=== PATIENT | female | born 1975 | race Caucasian/White ===

== ENCOUNTER 2017-01-10 17:29 | Inpatient (IN) | payer SELFPAY ==
[~2017-01-10] VITALS: Ht 160 cm; Wt 113.4 kg
[~2017-01-10 17:29] MED LIST: LOSA25TA4 PO; VENL37.5 PO
[2017-01-10] MEDS ORDERED: IV 1/2 NORMAL SALINE 1,000 ML IV SCH (19:16)
[2017-01-10] MEDS ORDERED: MORPHINE SULFATE 2 MG/ML DISP.SYRIN. IV PRN (19:30)
[2017-01-10] MEDS ORDERED: LACTULOSE 20 GM/30 ML SOLUTION. PO PRN (19:30)
[2017-01-10] MEDS ORDERED: ZOLPIDEM 5 MG TABLET. PO PRN (19:30)
[2017-01-10] MEDS ORDERED: PROCHLORPERAZINE 10 MG/2 ML VIAL. IV PRN (19:30)
[2017-01-10] MEDS ORDERED: CALCIUM CARBONATE 500 MG TAB.CHEW PO PRN (19:30)
[2017-01-10] MEDS ORDERED: KETOROLAC TROMETHAMINE 30 MG/ML SYRINGE. IV PRN (19:30)
[2017-01-10] MEDS ORDERED: PROCHLORPERAZINE 25 MG SUPP.RECT. PR PRN (19:30)
[2017-01-10] MEDS ORDERED: MAGNESIUM HYDROXIDE 2,400 MG/30 ML ORAL.SUSP. PO PRN (19:30)
[2017-01-10] MEDS ORDERED: IBUPROFEN 400 MG TABLET. PO PRN (19:30)
[2017-01-10] MEDS ORDERED: OXYCODONE IR 5 MG TABLET. PO PRN (19:30)
[2017-01-10] MEDS ORDERED: MAG HYDROX/ALUMINUM HYD/SIMETH 30 ML ORAL.SUSP PO PRN (19:30)
[2017-01-10] MEDS ORDERED: ONDANSETRON PF 4 MG/2 ML VIAL. IV PRN (19:30)
[2017-01-10] MEDS ORDERED: BISACODYL 10 MG SUPP.RECT. PR PRN (19:30)
[2017-01-10] MEDS ORDERED: ACETAMINOPHEN 325 MG TABLET. PO PRN (19:30)
[2017-01-10 19:39] VITALS: BP 126/68
--- NOTE | 2017-01-10 20:07 | PDOC1 ---
History and Physical Date of Admission Date of Admission DATE: 01/10/17 TIME: 20:01 Identification/Chief Complaint Chief Complaint fall mechanical Source Source: Caregiver, Chart review, Patient History of Present Illness History of Present Illness 41 yo female, slipped on wet concrete today, no head trauma, mechanical, no presyncopal sxs. Went to [facility], Imaging shows R fem neck fx. Ortho aware, transferred here for planned sx in AM, Pt did have ankle sx from trauma in the past. LAbs ok except for K of 2.9 at [facility] no relief, claims dilaudid helped NO known heart and lung probs: PAst medical: hypothyroidism, HTN, Anxiety Past sx: hysterectomy, cholecystectomy,left ozzy sx Smoker Allergy to duoneb Fam hx, reviewed, non contributory Past Medical History Cardiovascular: HTN Psych: Anxiety Endocrine: Hypothyroidism Past Surgical History Past Surgical History: Cholecystectomy, Hysterectomy Family History Family History: No Significant Social History Smoke: 1 pack per day ALCOHOL: none Drugs: None Current Problem List Problem List Problems Medical Problems: (1) Hip fracture Status: Acute Problems: Current Medications Current Medications Current Medications Losartan Potassium (Cozaar) 25 mg DAILY PO ; Start 01/11/17 at 09:00 Venlafaxine HCl 37.5 mg 37.5 mg DAILY PO ; Start 01/11/17 at 09:00 Sodium Chloride (Iv Sodium Chloride 0.45%) 1,000 ml @ 100 mls/hr Q10H IV ; Start 01/10/17 at 19:16; Stop 01/10/17 at 19:23; Status DC Ondansetron HCl (Zofran) 4 mg PRN Q6HRS PRN IV NAUSEA/VOMITING; Start 01/10/17 at 19:30 Prochlorperazine Edisylate (Compazine) 10 mg PRN Q6HRS PRN IV NAUSEA/VOMITING; Start 01/10/17 at 19:30 Prochlorperazine (Compazine) 25 mg PRN Q12HR PRN [place] NAUSEA/VOMITING; Start at 19:30 Al Hydroxide/Mg Hydroxide (Mylanta Plus Xs) 30 ml PRN Q3HRS PRN PO HEARTBURN / GAS; Start 01/10/17 at 19:30 Calcium Carbonate/ Glycine (Tums) 500 mg PRN Q3HRS PRN PO UPSET STOMACH; Start 01/10/17 at 19:30 Zolpidem Tartrate (Ambien) 5 mg PRN QHS PRN PO INSOMNIA, MAY REPEAT IN 1HR; Start 01/10/17 at 19:30 Oxycodone HCl (Roxicodone) 5 mg PRN Q3HRS PRN PO BREAKTHROUGH PAIN; Start 01/10 at 19:30 Morphine Sulfate 2 mg PRN Q2HR PRN IV PAIN; Start 01/10/17 at 19:30; Stop 01/10 at 19:45; Status DC Oxycodone/ Acetaminophen (Percocet 5/325) 1 tab PRN Q4HRS PRN PO MILD PAIN, 1ST CHOICE; Start 01/10/17 at 19:30 Ketorolac Tromethamine (Toradol) 30 mg PRN Q6HRS PRN IV PAIN; Start 01/10/17 at 19:30; Stop 01/15/17 at 19:29 Acetaminophen (Tylenol) 650 mg PRN Q6HRS PRN PO MILD PAIN / TEMP; Start at 19:30 Ibuprofen (Motrin) 400 mg PRN Q6HRS PRN PO MILD PAIN; Start 01/10/17 at 19:30 Senna/Docusate Sodium (Senna Plus) 1 tab BID PO ; Start 01/10/17 at 21:00 Docusate Sodium (Colace) 100 mg BID PO ; Start 01/10/17 at 21:00 Magnesium Hydroxide (Milk Of Magnesia) 2,400 mg PRN Q12HR PRN PO CONSTIPATION; Start 01/10/17 at 19:30 Lactulose 20 gm PRN Q12HR PRN PO CONSTIPATION; Start 01/10/17 at 19:30 Bisacodyl 10 mg 10 mg PRN DAILY PRN [place] CONSTIPATION; Start 01/10/17 at 19:30 Potassium Chloride 100 ml @ 100 mls/hr Q1H IV ; Start 01/10/17 at 20:00; Stop 01/11/17 at 01:59 Potassium Chloride/Sodium Chloride (Iv Sodium Chloride 0.45%) 1,015 ml @ 100 mls/hr Q10H9M IV ; Start 01/10/17 at 20:00 Hydromorphone HCl (Dilaudid) 2 mg PRN Q4HRS PRN IV PAIN; Start 01/10/17 at 19: 45 Active Scripts Active Reported Losartan Potassium 25 Mg Tablet 25 Mg PO DAILY Effexor Xr (Venlafaxine Hcl) 37.5 Mg Cap.er.24h 1 Cap PO DAILY Allergies Allergies: Coded Allergies: albuterol (Verified Allergy, Intermediate, 11/12/16) ipratropium (Verified Allergy, Intermediate, 11/12/16) ROS General: No: Appetite, Chills, Fatigue, Malaise, Night Sweats, Other PSYCHOLOGICAL ROS: No: Anxiety, Behavioral Disorder, Concentration difficultie , Decreased libido, Depression, Disorientation, Hallucinations, Hostility, Irritablity, Memory difficulties, Mood Swings, Obsessive thoughts, Other, Physical abuse, Sexual abuse, Sleep disturbances, Suicidal ideation Eyes: No Blurry vision, No Decreased vision, No Double vision, No Dry eyes, No Excessive tearing, No Eye Pain, No Itchy Eyes, No Loss of vision, No Other, No Photophobia, No Scotomata, No Uses contacts, No Uses glasses HEENT: No: Epistaxis, Heacaches, Hearing change, Nasal congestion, Nasal discharge, Oral lesions, Other, Sinus pain, Sneezing, Snoring, Sore Throat, Tinnitus, Vertigo, Visual Changes, Vocal changes ALLERGY AND IMMUNOLOGY: No: Hives, Insect Bite Sensitivity, Itchy/Watery Eyes, Nasal Congestion, Other, Post Nasal Drip, Seasonal Allergies Hematological and Lymphatic: No: Bleeding Problems, Blood Clots, Blood Transfusions, Brusing, Night Sweats, Other, Pallor, Swollen Lymph Nodes ENDOCRINE: No: Breast Changes, Galactorrhea, Hair Pattern Changes, Hot Flashes , Malaise/lethargy, Mood Swings, Other, Palpitations, Polydipsia/polyuria, Skin Changes, Temperature Intolerance, Unexpected Weight Changes Breast: No New/Changing Breast Lumps, No Nipple changes, No Nipple discharge, No Other Respiratory: No: Cough, Hemoptysis, Orthopnea, Other, Pleuritic Pain, SOB with excertion, Shortness of breath, Sputum Changes, Stridor, Tachypnea, Wheezing Cardiovascular: No Chest Pain, No Edema, No Lt Headedness, No Orthopnea, No Other, No Palpitations, No Paroxysmal Noc. Dyspnea Genitourinary: No , No , No , No , No , No , No , No Discharge, No Dysuria, No Flank Pain, No Frequency, No Hematuria, No Incontinence, No Other, No Pain, No Retention, No Urgency Musculoskeletal: Yes Other (pain R hip now) Neurological: No Behavorial Changes, No Bowel/Bladder ControlChng, No Confusion , No Dizziness, No Gait Disturbance, No Headaches, No Impaired Coord/balance, No Memory Loss, No Numbness/Tingling, No Other, No Seizures, No Speech Problems , No Tremors, No Visual Changes, No Weakness Skin: No Acne, No Dry Skin, No Eczema, No Hair Changes, No Lumps, No Mole Changes, No Mottling, No Nail Changes, No Other, No Pruritus, No Rash, No Skin Lesion Changes Physical Exam General: Alert, Oriented X3, Cooperative, No acute distress HEENT: Atraumatic Lungs: Clear to auscultation, Normal air movement Heart: S1S2, RRR, no thrills, no rubs, no gallops, no murmurs Cardiovascular: S1, S2 Breasts: Normal, Rt breast nml w/o mass, Lt breast nml w/o mass, Nipples normal Abdomen: Normal bowel sounds, Soft, No tenderness, No hepatosplenomegaly, No masses Rectal Exam: not examined PELVIC: Nml ext genitalia Extremities: Other (external rotation R hip) Skin: No rashes, No breakdown, No significant lesion Neuro: Normal gait, Normal speech, Strength at 5/5 X4 ext, Normal tone, Sensation intact, Cranial nerves 3-12 NL, Reflexes 2+ Psych/Mental Status: Mental status NL, Mood NL Vitals Vitals Vital Signs Date Time Temp Pulse Resp B/P Pulse Ox O2 Delivery O2 Flow Rate FiO2 01/10/17 19:39 98.6 73 18 126/68 92 Room Air 98.6 VTE Prophylaxis Ordered VTE Prophylaxis Devices: Yes VTE Pharmacological Prophylaxi: Yes Assessment/Plan Assessment/Plan 1. R fem neck fx, closed, traumatic after a mechanical fall 2. Critical Hypokalemia 3. Hypothyroidism, HTN, ANxiety NOS - chronic stable PLAn: Ok for liquid diet tonight then NPO post MN K containing iVF plus Kcl 20 IV x 3 Dialudid prn Resume home meds PT/OT post op LAbs amairani AM - rpt K amairani Jackson Rn and pt and ASHWINI HAQUE MD Jan 10, 2017 20:07
[2017-01-10] MEDS ORDERED: NICOTINE 21MG PATCH. TD PRN (20:15)
[2017-01-10] MEDS: OXYCODONE/APAP 5/325 TABLET. PO PRN (20:37)
[2017-01-10] MEDS: SENNOSIDES/DOCUSATE 8.6/50MG TABLET. PO SCH (20:37)
[2017-01-10] MEDS: DOCUSATE SODIUM 100 MG CAPSULE PO SCH (20:37)
[2017-01-10] MEDS: POTASSIUM CHLORIDE 30 MEQ in IV 1/2 NORMAL SALINE 1,000 ML IV SCH (20:38)
[2017-01-10] MEDS: POTASSIUM CHLORIDE 10MEQ 100 ML IV SCH ×2 (20:39→22:47)
[2017-01-10] MEDS: HYDROMORPHONE 2 MG/ML VIAL. IV PRN (21:07)
[2017-01-10 23:09] VITALS: BP 116/57
[2017-01-11] VITALS (10 sets, daily range): BP systolic 115–151; BP diastolic 58–92
[2017-01-11] MEDS: POTASSIUM CHLORIDE 10MEQ 100 ML IV SCH ×4 (00:22→05:19)
[2017-01-11] MEDS: OXYCODONE/APAP 5/325 TABLET. PO PRN (00:50)
[2017-01-11] MEDS: HYDROMORPHONE 2 MG/ML VIAL. IV PRN ×7 (02:00→22:06)
[2017-01-11] MEDS ORDERED: OMEP40CA5 PO (08:13)
[2017-01-11] MEDS ORDERED: CARB200T PO ×2 (08:13)
[2017-01-11] MEDS ORDERED: ESTR2TAB PO (08:13)
[2017-01-11] MEDS ORDERED: TRAZ150T55 PO (08:13)
[2017-01-11] MEDS ORDERED: ASPI81TA2 PO (08:13)
[2017-01-11] MEDS ORDERED: POTA10TA10 PO (08:13)
[2017-01-11] MEDS ORDERED: LOSA1TAB18 PO (08:13)
[2017-01-11] MEDS ORDERED: ATOR10TA PO (08:13)
[2017-01-11] MEDS ORDERED: IV RINGERS,LACTATED 1000ML 1,000 ML IV SCH (08:14)
[2017-01-11] MEDS ORDERED: FENTANYL PF 100 MCG/2 ML VIAL. IV PRN ×2 (08:15→14:00)
[2017-01-11] MEDS ORDERED: LIDOCAINE 1% 1 ML SYRINGE. ID PRN (08:15)
[2017-01-11] MEDS ORDERED: ONDANSETRON PF 4 MG/2 ML VIAL. IV PRN ×2 (08:15→14:00)
[2017-01-11] MEDS ORDERED: PROCHLORPERAZINE 10 MG/2 ML VIAL. IV PRN (08:15)
[2017-01-11 08:23] LABS: BASO # 0.1 x10^3/uL (0.0-0.2); BASO % 1 % (0-3); EOS % 2 % (0-3); HEMATOCRIT 38.2 % (36.0-47.0); HEMOGLOBIN 12.3 g/dL (12.0-15.5); LYMPH # 2.5 x10^3/uL (1.0-4.8); LYMPH % 30 % (24-48); MEAN CORPUSCULAR HEMOGLOBIN 30 pg (25-35); MEAN CORPUSCULAR HGB CONC 32 g/dL (31-37); MEAN CORPUSCULAR VOLUME 94 fL (79-100); MONO % 9 % (0-9); NEUT % 59 % (31-73); PLATELET COUNT 232 x10^3/uL (140-400); RED BLOOD COUNT 4.08 x10^6/uL (3.50-5.40); RED CELL DISTRIBUTION WIDTH 14.9 % (11.5-14.5); WHITE BLOOD COUNT 8.5 x10^3/uL (4.0-11.0)
[2017-01-11 08:34] LABS: INR 1.1 (0.8-1.1); PROTHROMBIN TIME PATIENT 13.2 SEC (11.7-14.0)
[2017-01-11] MEDS: DOCUSATE SODIUM 100 MG CAPSULE PO SCH ×2 (08:34→20:56)
[2017-01-11] MEDS: SENNOSIDES/DOCUSATE 8.6/50MG TABLET. PO SCH ×2 (08:34→20:56)
[2017-01-11] MEDS: VENLAFAXINE XR 37.5 MG CAP.ER.24H. PO SCH (08:34)
[2017-01-11 08:41] LABS: ALBUMIN/GLOBULIN RATIO 0.7 (1.0-1.7); CALCIUM 9.4 mg/dL (8.5-10.1); CREATININE 0.9 mg/dL (0.6-1.0); GFR 68.3; PHOSPHORUS 3.1 mg/dL (2.6-4.7); TOTAL BILIRUBIN 0.5 mg/dL (0.2-1.0); TOTAL PROTEIN 7.3 g/dL (6.4-8.2)
[2017-01-11] MEDS ORDERED: PNEUMOCOCCAL VAX SCREEN BY RX. MC ONE (08:45)
[2017-01-11] MEDS ORDERED: BUPIVACAINE-EPI 0.25%-1:200000 MPF 30 ML VIAL. ONE (09:35)
[2017-01-11] MEDS ORDERED: PROPOFOL 20 ML IV ONE (10:39)
[2017-01-11] MEDS ORDERED: LIDOCAINE 2% 100 MG/5 ML DISP.SYRIN. ONE (10:39)
[2017-01-11] MEDS ORDERED: ONDANSETRON PF 4 MG/2 ML VIAL. ONE (10:40)
[2017-01-11] MEDS ORDERED: ROCURONIUM 50 MG/5 ML VIAL. ONE (10:40)
[2017-01-11] MEDS ORDERED: FAMOTIDINE 20 MG/2 ML VIAL ONE (10:40)
[2017-01-11] MEDS ORDERED: FENTANYL PF 100 MCG/2 ML VIAL. ONE ×2 (10:40→13:25)
[2017-01-11] MEDS ORDERED: PHENYLEPHRINE in 0.9% NACL PF 1 MG/10 ML DISP.SYRIN. IV ONE (10:40)
[2017-01-11] MEDS ORDERED: CEFAZOLIN PREMIX 2 GM/50 ML BAG. IV ONE (11:21)
[2017-01-11] MEDS ORDERED: CEFAZOLIN 2GM PREMIX 50 ML IV ONE (11:21)
--- NOTE | 2017-01-11 11:50 | PDOC2 ---
CONSULT Date of Consult Date of Consult DATE: 01/11/17 TIME: 11:34 Reason for Consult Reason for Consult: Right hip fracture Identification/Chief Complaint Chief Complaint Right hip pain after a fall Source Source: Chart review, Patient History of Present Illness Reason for Visit: This 41-year-old woman slipped and fell on wet concrete yesterday, landed on her right hip and felt a pop. She was seen at [facility] emergency room, where x -rays showed a low femoral neck fracture which is displaced. She had hip pain and was unable to walk. Her only complaint is of hip pain. During the review of systems she indicated that she has had hip pain since about October 30, where it felt like the hip needed to pop. She had x-rays at [facility] on 11/07/16 that were negative for a fracture. She had a corticosteroid injection into the right hip joint on 11/12/16 which I noted when I reviewed her old x-rays. On detailed questioning she said the cortisone injection did not help her pain. Also on detailed questioning and review of systems, she notes some other fracture difficulty healing, including a fourth metatarsal fracture that occurred while walking in July 2015 and which has not healed properly. She also had an ankle fracture many years ago after slipping on the ice. She had a hysterectomy at 22 years old and has been on hormone replacement. She was on vitamin D remotely but is no longer on vitamin D. Past Medical History Cardiovascular: HTN Pulmonary: Asthma Psych: Anxiety, Depression Endocrine: Hypothyroidism Past Surgical History Past Surgical History Left ankle ORIF 21 years ago 8 screws and a plate. "Shattered the joint". Hardware removed in approximately 2004. 2 Ruptured uterus and bowel at 22 years old. Had hysterectomy then. On hormone replacement. Cholecystectomy. Past Surgical History: Cholecystectomy, Hysterectomy Family History Family History: Cancer, Coronary Artery Disease, Diabetes, Hypertension Social History Social History She was in jail for 5 years and was recently released. She is currently living in a custodial house. 1 pack per day ALCOHOL: none Drugs: None, Other (remote illicit drug use) Current Problem List Problem List Problems Medical Problems: (1) Hip fracture Status: Acute Current Medications Current Medications Current Medications Losartan Potassium (Cozaar) 25 mg DAILY PO ; Start 01/11/17 at 09:00 Venlafaxine HCl 37.5 mg 37.5 mg DAILY PO Last administered on 3/25/17at 08:34; Start 01/11/17 at 09:00 Sodium Chloride (Iv Sodium Chloride 0.45%) 1,000 ml @ 100 mls/hr Q10H IV ; Start 01/10/17 at 19:16; Stop 01/10/17 at 19:23; Status DC Ondansetron HCl (Zofran) 4 mg PRN Q6HRS PRN IV NAUSEA/VOMITING; Start 01/10/17 at 19:30 Prochlorperazine Edisylate (Compazine) 10 mg PRN Q6HRS PRN IV NAUSEA/VOMITING; Start 01/10/17 at 19:30 Prochlorperazine (Compazine) 25 mg PRN Q12HR PRN [place] NAUSEA/VOMITING; Start at 19:30 Al Hydroxide/Mg Hydroxide (Mylanta Plus Xs) 30 ml PRN Q3HRS PRN PO HEARTBURN / GAS; Start 01/10/17 at 19:30 Calcium Carbonate/ Glycine (Tums) 500 mg PRN Q3HRS PRN PO UPSET STOMACH; Start 01/10/17 at 19:30 Zolpidem Tartrate (Ambien) 5 mg PRN QHS PRN PO INSOMNIA, MAY REPEAT IN 1HR Last administered on 01/10/17 21:06; Start 01/10/17 at 19:30 Oxycodone HCl (Roxicodone) 5 mg PRN Q3HRS PRN PO BREAKTHROUGH PAIN; Start 01/10 at 19:30 Morphine Sulfate 2 mg PRN Q2HR PRN IV PAIN; Start 01/10/17 at 19:30; Stop 01/10 at 19:45; Status DC Oxycodone/ Acetaminophen (Percocet 5/325) 1 tab PRN Q4HRS PRN PO MILD PAIN, 1ST CHOICE Last administered on 01/11/17 00:50; Start 01/10/17 at 19:30 Ketorolac Tromethamine (Toradol) 30 mg PRN Q6HRS PRN IV PAIN Last administered on 01/10/17 20:37; Start 01/10/17 at 19:30; Stop 01/15/17 at 19:29 Acetaminophen (Tylenol) 650 mg PRN Q6HRS PRN PO MILD PAIN / TEMP; Start at 19:30 Ibuprofen (Motrin) 400 mg PRN Q6HRS PRN PO MILD PAIN; Start 01/10/17 at 19:30 Senna/Docusate Sodium (Senna Plus) 1 tab BID PO Last administered on 01/11/17 08:34; Start 01/10/17 at 21:00 Docusate Sodium (Colace) 100 mg BID PO Last administered on 01/11/17 08:34; Start 01/10/17 at 21:00 Magnesium Hydroxide (Milk Of Magnesia) 2,400 mg PRN Q12HR PRN PO CONSTIPATION; Start 01/10/17 at 19:30 Lactulose 20 gm PRN Q12HR PRN PO CONSTIPATION; Start 01/10/17 at 19:30 Bisacodyl 10 mg 10 mg PRN DAILY PRN [place] CONSTIPATION; Start 01/10/17 at 19:30 Potassium Chloride 100 ml @ 100 mls/hr Q1H IV Last administered on 01/11/17 05:19; Start 01/10/17 at 20:00; Stop 01/11/17 at 01:59; Status DC Potassium Chloride/Sodium Chloride (Iv Sodium Chloride 0.45%) 1,015 ml @ 100 mls/hr Q10H9M IV Last administered on 01/10/17 20:38; Start 01/10/17 at 20:00 Hydromorphone HCl (Dilaudid) 2 mg PRN Q4HRS PRN IV PAIN Last administered on 08:35; Start 01/10/17 at 19:45 Nicotine (Nicoderm Cq 21mg) 1 patch PRN DAILY PRN TD SMOKING CESSATION Last administered on 01/10/17 21:06; Start 01/10/17 at 20:15 Ondansetron HCl (Zofran) 4 mg PRN Q6HRS PRN IV Nausea; Start 01/11/17 at 08:15 ; Stop 01/12/17 at 08:14 Fentanyl Citrate (Fentanyl 2ml Vial) 25 mcg PRN Q5MIN PRN IV MILD PAIN; Start 01/11/17 at 08:15; Stop 01/12/17 at 08:14 Fentanyl Citrate (Fentanyl 2ml Vial) 50 mcg PRN Q5MIN PRN IV MODERATE PAIN; Start 01/11/17 at 08:15; Stop 01/12/17 at 08:14 Morphine Sulfate 1 mg 1 mg PRN Q10MIN PRN IV SEVERE PAIN; Start 01/11/17 at 08: 15; Stop 01/12/17 at 08:14 Lactated Ringer's (Iv Lactated Ringers) 1,000 ml @ 0 mls/hr Q0M IV ; Start at 08:14; Stop 01/11/17 at 20:13 Lidocaine HCl 2 ml 1X PRN PRN ID IV START; Start 01/11/17 at 08:15; Stop at 08:14 Hydromorphone HCl (Dilaudid) 0.5 mg PRN Q10MIN PRN IV SEV PAIN,Second choice; Start 01/11/17 at 08:15; Stop 01/12/17 at 08:14 Prochlorperazine Edisylate (Compazine) 5 mg PACU PRN PRN IV NAUSEA; Start 01/11 at 08:15; Stop 01/12/17 at 08:14 Pneumococcal Polyvalent Vaccine (Do NOT chart on this placeholder) 1 each 1X ONCE MC ; Start 01/11/17 at 08:45; Stop 01/11/17 at 08:46; Status DC Bupivacaine HCl/ Epinephrine Bitart 30 ml 30 ml STK-MED ONCE .ROUTE ; Start at 09:35; Stop 01/11/17 at 09:36; Status DC Propofol (Diprivan) 20 ml @ As Directed STK-MED ONCE IV ; Start 01/11/17 at 10: 39; Stop 01/11/17 at 10:40; Status DC Lidocaine HCl 100 mg STK-MED ONCE .ROUTE ; Start 01/11/17 at 10:39; Stop at 10:40; Status DC Fentanyl Citrate (Fentanyl 2ml Vial) 100 mcg STK-MED ONCE .ROUTE ; Start at 10:40; Stop 01/11/17 at 10:41; Status DC Rocuronium [place] (Zemuron) 50 mg STK-MED ONCE .ROUTE ; Start 01/11/17 at 10:40 ; Stop 01/11/17 at 10:41; Status DC Famotidine (Pepcid) 20 mg STK-MED ONCE .ROUTE ; Start 01/11/17 at 10:40; Stop at 10:41; Status DC Ondansetron HCl (Zofran) 4 mg STK-MED ONCE .ROUTE ; Start 01/11/17 at 10:40; Stop 01/11/17 at 10:41; Status DC Phenylephrine HCl 1 mg STK-MED ONCE IV ; Start 01/11/17 at 10:40; Stop 01/11/17 at 10:41; Status DC Pneumococcal Polyvalent Vaccine 0.5 ml 0.5 ml ONCE ONCE VAX IM ; Start 01/12/17 at 09:00; Stop 01/12/17 at 09:01 Cefazolin Sodium/ Dextrose (Ancef 2gm Premix) 50 ml @ As Directed STK-MED ONCE IV ; Start 01/11/17 at 11:21; Stop 01/11/17 at 11:22; Status DC Active Scripts Active Reported Omeprazole 40 Mg Capsule.dr 40 Mg PO BID Aspirin 81 Mg Tab.chew 1 Tab PO DAILY Lipitor (Atorvastatin Calcium) 10 Mg Tablet 1 Tab PO QHS Estradiol 2 Mg Tablet 1 Tab PO DAILY Losartan-Hctz 100-12.5 Mg Tab (Losartan/Hydrochlorothiazide) 1 Each Tablet 1 Tab PO DAILY Trazodone Hcl 150 Mg Tablet 1 Tab PO QHS Tegretol (Carbamazepine) 200 Mg Tablet 1 Tab PO HS Tegretol (Carbamazepine) 200 Mg Tablet 0.5 Tab PO DAILY Potassium Chloride 10 Meq Tablet.er 10 Meq PO BID Losartan Potassium 25 Mg Tablet 25 Mg PO DAILY Effexor Xr (Venlafaxine Hcl) 37.5 Mg Cap.er.24h 1 Cap PO DAILY Allergies Allergies: Coded Allergies: albuterol (Verified Allergy, Intermediate, 11/12/16) ipratropium (Verified Allergy, Intermediate, 11/12/16) ROS Review of System Medications include losartan/hydrochlorothiazide, amlodipine, estradiol, levothyroxine, amitriptyline, potassium, Effexor, Tegretol, low-dose aspirin, atorvastatin. She took Tegretol 100 mg as a mood stabilizer remotely but has not been on that recently. She denies a known history of bipolar disease, and has depression. She reports runny bowels lately which she relates to the stress of recently being released from jail. She had a fourth metatarsal fracture in July 2015 when she stepped wrong. Difficulty healing with that. Hip pain started October 30. She was on crutches for 6 weeks. She had difficulty walking. She had the hip and pelvis x-rays. She had a cortisone injection. Her PCP recommended an MRI of the hip (which is very sensitive for detecting stress fracture), however the [facility] [employer] denied the MRI. General: No: Malaise PSYCHOLOGICAL ROS: YES: Depression Eyes: No Loss of vision HEENT: No: Heacaches Respiratory: No: SOB with excertion, Shortness of breath Cardiovascular: No Chest Pain Gastrointestinal: Yes Diarrhea Genitourinary: No Dysuria Musculoskeletal: Yes Joint Pain Neurological: Yes Bowel/Bladder ControlChng Skin: No Skin Lesion Changes Physical Exam General: Alert, Oriented X3, Cooperative, No acute distress, Other (soft reserved affect) HEENT: PERRLA, Mucous membr. moist/pink Lungs: Normal air movement Heart: Regular rate Abdomen: Soft Extremities: No edema, Normal pulses, Other (tenderness at the right hip joint. ) Skin: No rashes, No breakdown, Other (skin intact over the fracture) Neuro: Normal speech, Other (active range of motion of the ankle dorsiflexion and plantarflexion. Sensation intact at the ankle and foot.) Psych/Mental Status: Mental status NL, Other (mood seem slightly reserved otherwise normal) MUSCULOSKELETAL: Abnormal exam of right (hip joint with pain with any attempted motion. Left hip, and bilateral upper extremities show normal alignment, no tenderness swelling or deformity. Neurovascularly intact at the other 3 extremities.) Vitals VITALS Vital Signs Date Time Temp Pulse Resp B/P Pulse Ox O2 Delivery O2 Flow Rate FiO2 01/11/17 11:04 99.6 73 14 120/67 95 Room Air 99.6 Labs Labs Laboratory Tests Test 01/11/17 07:25 01/11/17 10:55 White Blood Count 8.5x10^3/uL (4.0-11.0) Red Blood Count 4.08x10^6/uL (3.50-5.40) Hemoglobin 12.3g/dL (12.0-15.5) Hematocrit 38.2% (36.0-47.0) Mean Corpuscular Volume 94fL (79-100) Mean Corpuscular Hemoglobin 30pg (25-35) Mean Corpuscular Hemoglobin Concent 32g/dL (31-37) Red Cell Distribution Width 14.9% (11.5-14.5) Platelet Count 232x10^3/uL (140-400) Neutrophils (%) (Auto) 59% (31-73) Lymphocytes (%) (Auto) 30% (24-48) Monocytes (%) (Auto) 9% (0-9) Eosinophils (%) (Auto) 2% (0-3) Basophils (%) (Auto) 1% (0-3) Neutrophils # (Auto) 5.0x10^3uL (1.8-7.7) Lymphocytes # (Auto) 2.5x10^3/uL (1.0-4.8) Monocytes # (Auto) 0.8x10^3/uL (0.0-1.1) Eosinophils # (Auto) 0.2x10^3/uL (0.0-0.7) Basophils # (Auto) 0.1x10^3/uL (0.0-0.2) Prothrombin Time 13.2SEC (11.7-14.0) Prothromb Time International Ratio 1.1 (0.8-1.1) Sodium Level 141mmol/L (136-145) Potassium Level 3.0mmol/L (3.5-5.1) Chloride Level 102mmol/L (98-107) Carbon Dioxide Level 27mmol/L (21-32) Anion Gap 12 (6-14) Blood Urea Nitrogen 7mg/dL (7-20) Creatinine 0.9mg/dL (0.6-1.0) Estimated GFR (Cockcroft-Gault) 68.3 BUN/Creatinine Ratio 8 (6-20) Glucose Level 83mg/dL (70-99) Calcium Level 9.4mg/dL (8.5-10.1) Phosphorus Level 3.1mg/dL (2.6-4.7) Magnesium Level 2.0mg/dL (1.8-2.4) Total Bilirubin 0.5mg/dL (0.2-1.0) Aspartate Amino Transf (AST/SGOT) 24U/L (15-37) Alanine Aminotransferase (ALT/SGPT) 31U/L (14-59) Alkaline Phosphatase 96U/L (46-116) Total Protein 7.3g/dL (6.4-8.2) Albumin 3.0g/dL (3.4-5.0) Albumin/Globulin Ratio 0.7 (1.0-1.7) Glucose (Fingerstick) 80mg/dL (70-99) Laboratory Tests Test 01/11/17 07:25 01/11/17 10:55 White Blood Count 8.5x10^3/uL (4.0-11.0) Red Blood Count 4.08x10^6/uL (3.50-5.40) Hemoglobin 12.3g/dL (12.0-15.5) Hematocrit 38.2% (36.0-47.0) Mean Corpuscular Volume 94fL (79-100) Mean Corpuscular Hemoglobin 30pg (25-35) Mean Corpuscular Hemoglobin Concent 32g/dL (31-37) Red Cell Distribution Width 14.9% (11.5-14.5) Platelet Count 232x10^3/uL (140-400) Neutrophils (%) (Auto) 59% (31-73) Lymphocytes (%) (Auto) 30% (24-48) Monocytes (%) (Auto) 9% (0-9) Eosinophils (%) (Auto) 2% (0-3) Basophils (%) (Auto) 1% (0-3) Neutrophils # (Auto) 5.0x10^3uL (1.8-7.7) Lymphocytes # (Auto) 2.5x10^3/uL (1.0-4.8) Monocytes # (Auto) 0.8x10^3/uL (0.0-1.1) Eosinophils # (Auto) 0.2x10^3/uL (0.0-0.7) Basophils # (Auto) 0.1x10^3/uL (0.0-0.2) Prothrombin Time 13.2SEC (11.7-14.0) Prothromb Time International Ratio 1.1 (0.8-1.1) Sodium Level 141mmol/L (136-145) Potassium Level 3.0mmol/L (3.5-5.1) Chloride Level 102mmol/L (98-107) Carbon Dioxide Level 27mmol/L (21-32) Anion Gap 12 (6-14) Blood Urea Nitrogen 7mg/dL (7-20) Creatinine 0.9mg/dL (0.6-1.0) Estimated GFR (Cockcroft-Gault) 68.3 BUN/Creatinine Ratio 8 (6-20) Glucose Level 83mg/dL (70-99) Calcium Level 9.4mg/dL (8.5-10.1) Phosphorus Level 3.1mg/dL (2.6-4.7) Magnesium Level 2.0mg/dL (1.8-2.4) Total Bilirubin 0.5mg/dL (0.2-1.0) Aspartate Amino Transf (AST/SGOT) 24U/L (15-37) Alanine Aminotransferase (ALT/SGPT) 31U/L (14-59) Alkaline Phosphatase 96U/L (46-116) Total Protein 7.3g/dL (6.4-8.2) Albumin 3.0g/dL (3.4-5.0) Albumin/Globulin Ratio 0.7 (1.0-1.7) Glucose (Fingerstick) 80mg/dL (70-99) Images Images AP pelvis and lateral of the right hip 01/10/17 images independently reviewed. Report reviewed. Femoral neck fracture. No mention of a possible stress fracture on the report. I see some sclerosis at the base of the neck, suspicious for stress fracture callus or possible malignancy/metastasis. I reviewed the prior films from November 07 of November 12. On the lateral view of November 07 there is doubtful fracture callus. I agree with the radiologist report. On the images from the arthrogram, there is collection of the radio opaque injection around the area where the fracture has developed recently. It' s likely there was a fracture present but not well seen on plain x-rays. It would have required an MRI to confirm. Assessment/Plan Assessment/Plan Probable stress fracture right femoral neck. A 41-year-old falling from a standing height and breaking the hip is by definition a pathologic fracture. I suspect the pathology is underlying osteoporosis based on her history of probable stress fracture of the fourth metatarsal in 2014, and her remote hysterectomy. We should check her vitamin D level, and she needs a bone density test at some point as an outpatient. She and I discussed treatment of her femoral neck fracture. This is an extracapsular fracture and should be treated as an intertrochanteric fracture. I recommended intramedullary nail. I discussed the surgical procedure with her, as well as the expected recovery which may take 6 months. I expect she will be on a walker for 6-8 weeks, then switch to a cane, and eventually should walk normally barring any severe complications. I discussed with her some of the potential complications such as nonunion or malunion, infection, blood clots, bleeding, need for hardware removal, or other potential surgical or anesthetic complications. I discussed the only logical nonsurgical treatment which is bedrest and I don't recommend that due to high risks of bedsores, pneumonia, blood clots and debility. We discussed the benefits of surgery such as early mobilization, I will have her up tomorrow with a walker. Surgical site was marked by me. All of her questions were answered. SADE BRASHER MD Jan 11, 2017 11:50
[2017-01-11] MEDS ORDERED: DEXAMETHASONE SOD PHOS 20 MG/5 ML VIAL. ONE (12:35)
--- NOTE | 2017-01-11 13:25 | PDOC ---
PROGRESS NOTES Chief Complaint Chief Complaint 1. R fem neck fx, closed, traumatic after a mechanical fall 2. Critical Hypokalemia 3. Hypothyroidism, HTN, ANxiety NOS - chronic stable History of Present Illness History of Present Illness Out having OR Plan: Post op labs amairani PT/OT Sw for rehab upon dc check vit D 25 OH levels Vitals Vitals Vital Signs Date Time Temp Pulse Resp B/P Pulse Ox O2 Delivery O2 Flow Rate FiO2 01/11/17 11:04 99.6 73 14 120/67 95 Room Air 99.6 Physical Exam General: Alert, Oriented X3, Cooperative, No acute distress, Other (soft reserved affect) Heart: Regular rate Abdomen: Soft Extremities: No edema, Normal pulses, Other (tenderness at the right hip joint. ) Skin: No rashes, No breakdown, Other (skin intact over the fracture) Labs LABS Laboratory Tests Test 01/11/17 07:25 01/11/17 10:55 White Blood Count 8.5x10^3/uL (4.0-11.0) Red Blood Count 4.08x10^6/uL (3.50-5.40) Hemoglobin 12.3g/dL (12.0-15.5) Hematocrit 38.2% (36.0-47.0) Mean Corpuscular Volume 94fL (79-100) Mean Corpuscular Hemoglobin 30pg (25-35) Mean Corpuscular Hemoglobin Concent 32g/dL (31-37) Red Cell Distribution Width 14.9% (11.5-14.5) Platelet Count 232x10^3/uL (140-400) Neutrophils (%) (Auto) 59% (31-73) Lymphocytes (%) (Auto) 30% (24-48) Monocytes (%) (Auto) 9% (0-9) Eosinophils (%) (Auto) 2% (0-3) Basophils (%) (Auto) 1% (0-3) Neutrophils # (Auto) 5.0x10^3uL (1.8-7.7) Lymphocytes # (Auto) 2.5x10^3/uL (1.0-4.8) Monocytes # (Auto) 0.8x10^3/uL (0.0-1.1) Eosinophils # (Auto) 0.2x10^3/uL (0.0-0.7) Basophils # (Auto) 0.1x10^3/uL (0.0-0.2) Prothrombin Time 13.2SEC (11.7-14.0) Prothromb Time International Ratio 1.1 (0.8-1.1) Sodium Level 141mmol/L (136-145) Potassium Level 3.0mmol/L (3.5-5.1) Chloride Level 102mmol/L (98-107) Carbon Dioxide Level 27mmol/L (21-32) Anion Gap 12 (6-14) Blood Urea Nitrogen 7mg/dL (7-20) Creatinine 0.9mg/dL (0.6-1.0) Estimated GFR (Cockcroft-Gault) 68.3 BUN/Creatinine Ratio 8 (6-20) Glucose Level 83mg/dL (70-99) Calcium Level 9.4mg/dL (8.5-10.1) Phosphorus Level 3.1mg/dL (2.6-4.7) Magnesium Level 2.0mg/dL (1.8-2.4) Total Bilirubin 0.5mg/dL (0.2-1.0) Aspartate Amino Transf (AST/SGOT) 24U/L (15-37) Alanine Aminotransferase (ALT/SGPT) 31U/L (14-59) Alkaline Phosphatase 96U/L (46-116) Total Protein 7.3g/dL (6.4-8.2) Albumin 3.0g/dL (3.4-5.0) Albumin/Globulin Ratio 0.7 (1.0-1.7) Glucose (Fingerstick) 80mg/dL (70-99) Review of Systems Review of Systems having OR Assessment and Plan Assessmemt and Plan Problems Medical Problems: (1) Hip fracture Status: Acute Problems: Comment Review of Relevant I have reviewed the following items glenda (where applicable) has been applied. Labs Laboratory Tests Test 01/11/17 07:25 01/11/17 10:55 White Blood Count 8.5x10^3/uL (4.0-11.0) Red Blood Count 4.08x10^6/uL (3.50-5.40) Hemoglobin 12.3g/dL (12.0-15.5) Hematocrit 38.2% (36.0-47.0) Mean Corpuscular Volume 94fL (79-100) Mean Corpuscular Hemoglobin 30pg (25-35) Mean Corpuscular Hemoglobin Concent 32g/dL (31-37) Red Cell Distribution Width 14.9% (11.5-14.5) Platelet Count 232x10^3/uL (140-400) Neutrophils (%) (Auto) 59% (31-73) Lymphocytes (%) (Auto) 30% (24-48) Monocytes (%) (Auto) 9% (0-9) Eosinophils (%) (Auto) 2% (0-3) Basophils (%) (Auto) 1% (0-3) Neutrophils # (Auto) 5.0x10^3uL (1.8-7.7) Lymphocytes # (Auto) 2.5x10^3/uL (1.0-4.8) Monocytes # (Auto) 0.8x10^3/uL (0.0-1.1) Eosinophils # (Auto) 0.2x10^3/uL (0.0-0.7) Basophils # (Auto) 0.1x10^3/uL (0.0-0.2) Prothrombin Time 13.2SEC (11.7-14.0) Prothromb Time International Ratio 1.1 (0.8-1.1) Sodium Level 141mmol/L (136-145) Potassium Level 3.0mmol/L (3.5-5.1) Chloride Level 102mmol/L (98-107) Carbon Dioxide Level 27mmol/L (21-32) Anion Gap 12 (6-14) Blood Urea Nitrogen 7mg/dL (7-20) Creatinine 0.9mg/dL (0.6-1.0) Estimated GFR (Cockcroft-Gault) 68.3 BUN/Creatinine Ratio 8 (6-20) Glucose Level 83mg/dL (70-99) Calcium Level 9.4mg/dL (8.5-10.1) Phosphorus Level 3.1mg/dL (2.6-4.7) Magnesium Level 2.0mg/dL (1.8-2.4) Total Bilirubin 0.5mg/dL (0.2-1.0) Aspartate Amino Transf (AST/SGOT) 24U/L (15-37) Alanine Aminotransferase (ALT/SGPT) 31U/L (14-59) Alkaline Phosphatase 96U/L (46-116) Total Protein 7.3g/dL (6.4-8.2) Albumin 3.0g/dL (3.4-5.0) Albumin/Globulin Ratio 0.7 (1.0-1.7) Glucose (Fingerstick) 80mg/dL (70-99) Laboratory Tests Test 01/11/17 07:25 01/11/17 10:55 White Blood Count 8.5x10^3/uL (4.0-11.0) Red Blood Count 4.08x10^6/uL (3.50-5.40) Hemoglobin 12.3g/dL (12.0-15.5) Hematocrit 38.2% (36.0-47.0) Mean Corpuscular Volume 94fL (79-100) Mean Corpuscular Hemoglobin 30pg (25-35) Mean Corpuscular Hemoglobin Concent 32g/dL (31-37) Red Cell Distribution Width 14.9% (11.5-14.5) Platelet Count 232x10^3/uL (140-400) Neutrophils (%) (Auto) 59% (31-73) Lymphocytes (%) (Auto) 30% (24-48) Monocytes (%) (Auto) 9% (0-9) Eosinophils (%) (Auto) 2% (0-3) Basophils (%) (Auto) 1% (0-3) Neutrophils # (Auto) 5.0x10^3uL (1.8-7.7) Lymphocytes # (Auto) 2.5x10^3/uL (1.0-4.8) Monocytes # (Auto) 0.8x10^3/uL (0.0-1.1) Eosinophils # (Auto) 0.2x10^3/uL (0.0-0.7) Basophils # (Auto) 0.1x10^3/uL (0.0-0.2) Prothrombin Time 13.2SEC (11.7-14.0) Prothromb Time International Ratio 1.1 (0.8-1.1) Sodium Level 141mmol/L (136-145) Potassium Level 3.0mmol/L (3.5-5.1) Chloride Level 102mmol/L (98-107) Carbon Dioxide Level 27mmol/L (21-32) Anion Gap 12 (6-14) Blood Urea Nitrogen 7mg/dL (7-20) Creatinine 0.9mg/dL (0.6-1.0) Estimated GFR (Cockcroft-Gault) 68.3 BUN/Creatinine Ratio 8 (6-20) Glucose Level 83mg/dL (70-99) Calcium Level 9.4mg/dL (8.5-10.1) Phosphorus Level 3.1mg/dL (2.6-4.7) Magnesium Level 2.0mg/dL (1.8-2.4) Total Bilirubin 0.5mg/dL (0.2-1.0) Aspartate Amino Transf (AST/SGOT) 24U/L (15-37) Alanine Aminotransferase (ALT/SGPT) 31U/L (14-59) Alkaline Phosphatase 96U/L (46-116) Total Protein 7.3g/dL (6.4-8.2) Albumin 3.0g/dL (3.4-5.0) Albumin/Globulin Ratio 0.7 (1.0-1.7) Glucose (Fingerstick) 80mg/dL (70-99) Medications Current Medications Losartan Potassium (Cozaar) 25 mg DAILY PO ; Start 01/11/17 at 09:00 Venlafaxine HCl 37.5 mg 37.5 mg DAILY PO Last administered on 01/11/17t 08:34; Start 01/11/17 at 09:00 Sodium Chloride (Iv Sodium Chloride 0.45%) 1,000 ml @ 100 mls/hr Q10H IV ; Start 01/10/17 at 19:16; Stop 01/10/17 at 19:23; Status DC Ondansetron HCl (Zofran) 4 mg PRN Q6HRS PRN IV NAUSEA/VOMITING; Start 01/10/17 at 19:30 Prochlorperazine Edisylate (Compazine) 10 mg PRN Q6HRS PRN IV NAUSEA/VOMITING; Start 01/10/17 at 19:30 Prochlorperazine (Compazine) 25 mg PRN Q12HR PRN SD NAUSEA/VOMITING; Start at 19:30 Al Hydroxide/Mg Hydroxide (Mylanta Plus Xs) 30 ml PRN Q3HRS PRN PO HEARTBURN / GAS; Start 01/10/17 at 19:30 Calcium Carbonate/ Glycine (Tums) 500 mg PRN Q3HRS PRN PO UPSET STOMACH; Start 01/10/17 at 19:30 Zolpidem Tartrate (Ambien) 5 mg PRN QHS PRN PO INSOMNIA, MAY REPEAT IN 1HR Last administered on 01/10/17 21:06; Start 01/10/17 at 19:30 Oxycodone HCl (Roxicodone) 5 mg PRN Q3HRS PRN PO BREAKTHROUGH PAIN; Start 01/10 at 19:30 Morphine Sulfate 2 mg PRN Q2HR PRN IV PAIN; Start 01/10/17 at 19:30; Stop 01/10 at 19:45; Status DC Oxycodone/ Acetaminophen (Percocet 5/325) 1 tab PRN Q4HRS PRN PO MILD PAIN, 1ST CHOICE Last administered on 01/11/17 00:50; Start 01/10/17 at 19:30 Ketorolac Tromethamine (Toradol) 30 mg PRN Q6HRS PRN IV PAIN Last administered on 01/10/17 20:37; Start 01/10/17 at 19:30; Stop 01/15/17 at 19:29 Acetaminophen (Tylenol) 650 mg PRN Q6HRS PRN PO MILD PAIN / TEMP; Start at 19:30 Ibuprofen (Motrin) 400 mg PRN Q6HRS PRN PO MILD PAIN; Start 01/10/17 at 19:30 Senna/Docusate Sodium (Senna Plus) 1 tab BID PO Last administered on 01/11/17 08:34; Start 01/10/17 at 21:00 Docusate Sodium (Colace) 100 mg BID PO Last administered on 01/11/17 08:34; Start 01/10/17 at 21:00 Magnesium Hydroxide (Milk Of Magnesia) 2,400 mg PRN Q12HR PRN PO CONSTIPATION; Start 01/10/17 at 19:30 Lactulose 20 gm PRN Q12HR PRN PO CONSTIPATION; Start 01/10/17 at 19:30 Bisacodyl 10 mg 10 mg PRN DAILY PRN SD CONSTIPATION; Start 01/10/17 at 19:30 Potassium Chloride 100 ml @ 100 mls/hr Q1H IV Last administered on 01/11/17 05:19; Start 01/10/17 at 20:00; Stop 01/11/17 at 01:59; Status DC Potassium Chloride/Sodium Chloride (Iv Sodium Chloride 0.45%) 1,015 ml @ 100 mls/hr Q10H9M IV Last administered on 01/10/17 20:38; Start 01/10/17 at 20:00 Hydromorphone HCl (Dilaudid) 2 mg PRN Q4HRS PRN IV PAIN Last administered on 08:35; Start 01/10/17 at 19:45 Nicotine (Nicoderm Cq 21mg) 1 patch PRN DAILY PRN TD SMOKING CESSATION Last administered on 01/10/17 21:06; Start 01/10/17 at 20:15 Ondansetron HCl (Zofran) 4 mg PRN Q6HRS PRN IV Nausea; Start 01/11/17 at 08:15 ; Stop 01/12/17 at 08:14 Fentanyl Citrate (Fentanyl 2ml Vial) 25 mcg PRN Q5MIN PRN IV MILD PAIN; Start 01/11/17 at 08:15; Stop 01/12/17 at 08:14 Fentanyl Citrate (Fentanyl 2ml Vial) 50 mcg PRN Q5MIN PRN IV MODERATE PAIN; Start 01/11/17 at 08:15; Stop 01/12/17 at 08:14 Morphine Sulfate 1 mg 1 mg PRN Q10MIN PRN IV SEVERE PAIN; Start 01/11/17 at 08: 15; Stop 01/12/17 at 08:14 Lactated Ringer's (Iv Lactated Ringers) 1,000 ml @ 0 mls/hr Q0M IV ; Start at 08:14; Stop 01/11/17 at 20:13 Lidocaine HCl 2 ml 1X PRN PRN ID IV START; Start 01/11/17 at 08:15; Stop at 08:14 Hydromorphone HCl (Dilaudid) 0.5 mg PRN Q10MIN PRN IV SEV PAIN,Second choice; Start 01/11/17 at 08:15; Stop 01/12/17 at 08:14 Prochlorperazine Edisylate (Compazine) 5 mg PACU PRN PRN IV NAUSEA; Start 01/11 at 08:15; Stop 01/12/17 at 08:14 Pneumococcal Polyvalent Vaccine (Do NOT chart on this placeholder) 1 each 1X ONCE MC ; Start 01/11/17 at 08:45; Stop 01/11/17 at 08:46; Status DC Bupivacaine HCl/ Epinephrine Bitart 30 ml 30 ml STK-MED ONCE .ROUTE Last administered on 01/11/17t 12:32; Start 01/11/17 at 09:35; Stop 01/11/17 at 09:36 ; Status DC Propofol (Diprivan) 20 ml @ As Directed STK-MED ONCE IV ; Start 01/11/17 at 10: 39; Stop 01/11/17 at 10:40; Status DC Lidocaine HCl 100 mg STK-MED ONCE .ROUTE ; Start 01/11/17 at 10:39; Stop at 10:40; Status DC Fentanyl Citrate (Fentanyl 2ml Vial) 100 mcg STK-MED ONCE .ROUTE ; Start at 10:40; Stop 01/11/17 at 10:41; Status DC Rocuronium [place] (Zemuron) 50 mg STK-MED ONCE .ROUTE ; Start 01/11/17 at 10:40 ; Stop 01/11/17 at 10:41; Status DC Famotidine (Pepcid) 20 mg STK-MED ONCE .ROUTE ; Start 01/11/17 at 10:40; Stop at 10:41; Status DC Ondansetron HCl (Zofran) 4 mg STK-MED ONCE .ROUTE ; Start 01/11/17 at 10:40; Stop 01/11/17 at 10:41; Status DC Phenylephrine HCl 1 mg STK-MED ONCE IV ; Start 01/11/17 at 10:40; Stop 01/11/17 at 10:41; Status DC Pneumococcal Polyvalent Vaccine 0.5 ml 0.5 ml ONCE ONCE VAX IM ; Start 01/12/17 at 09:00; Stop 01/12/17 at 09:01 Cefazolin Sodium/ Dextrose (Ancef 2gm Premix) 50 ml @ As Directed STK-MED ONCE IV ; Start 01/11/17 at 11:21; Stop 01/11/17 at 11:22; Status DC Dexamethasone Sodium Phosphate (Decadron) 20 mg STK-MED ONCE .ROUTE ; Start at 12:35; Stop 01/11/17 at 12:36; Status DC Active Scripts Active Reported Omeprazole 40 Mg Capsule.dr 40 Mg PO BID Aspirin 81 Mg Tab.chew 1 Tab PO DAILY Lipitor (Atorvastatin Calcium) 10 Mg Tablet 1 Tab PO QHS Estradiol 2 Mg Tablet 1 Tab PO DAILY Losartan-Hctz 100-12.5 Mg Tab (Losartan/Hydrochlorothiazide) 1 Each Tablet 1 Tab PO DAILY Trazodone Hcl 150 Mg Tablet 1 Tab PO QHS Tegretol (Carbamazepine) 200 Mg Tablet 1 Tab PO HS Tegretol (Carbamazepine) 200 Mg Tablet 0.5 Tab PO DAILY Potassium Chloride 10 Meq Tablet.er 10 Meq PO BID Losartan Potassium 25 Mg Tablet 25 Mg PO DAILY Effexor Xr (Venlafaxine Hcl) 37.5 Mg Cap.er.24h 1 Cap PO DAILY Vitals/I & O Vital Sign - Last 24 Hours 01/10/17 01/10/17 01/10/17 01/10/17 19:39 20:00 22:00 23:09 Temp 98.6 97.7 98.6 97.7 Pulse 73 61 Resp 18 18 B/P 126/68 116/57 Pulse Ox 92 92 O2 Delivery Room Air Room Air Room Air Room Air 01/11/17 01/11/17 01/11/17 01/11/17 00:50 00:50 00:51 03:00 Temp 98.3 98.3 Pulse 71 Resp 18 B/P 115/58 Pulse Ox 90 O2 Delivery Room Air Room Air Room Air Room Air 01/11/17 01/11/17 01/11/17 01/11/17 07:00 08:35 09:05 11:04 Temp 98.0 99.6 98.0 99.6 Pulse 67 73 Resp 18 16 16 14 B/P 125/68 120/67 Pulse Ox 92 95 O2 Delivery Room Air Room Air Room Air Intake and Output 01/10/17 01/10/17 01/11/17 15:00 23:00 07:00 Intake Total 500 ml Balance 500 ml ASHWINI HAQUE MD Jan 11, 2017 13:25
[2017-01-11] MEDS ORDERED: NEOSTIGMINE METHYLSULFATE 5 MG/5 ML SYRINGE. ONE (13:39)
[2017-01-11] MEDS ORDERED: GLYCOPYRROLATE 1 MG/5 ML VIAL. ONE (13:39)
[2017-01-11] MEDS ORDERED: SEVOFLURANE 61 TO 120 MINUTES. IH ONE (13:42)
[2017-01-11] MEDS: FENTANYL PF 100 MCG/2 ML VIAL. IV PRN ×4 (13:52→14:21)
--- NOTE | 2017-01-11 13:58 | PDOC4 ---
Operative Note Operative Note Date of Procedure: January 11, 2017 Pre-Op Diagnosis: 1. closed right intertrochanteric hip fracture, pathologic fracture (ICD-10 code M84.459A) 2. morbid obesity, BMI 44.3 (ICD-10 code Z68.41) Post-Op Diagnosis: same Procedure/Anesthesia: Treatment of intertrochanteric right femur fracture with intramedullary implant (CPT 83087-34) with additional surgical time , instrumentation and complication risks for morbid obesity Surgeon: Sade Brasher MD Anesthesia Type: General EBL: 250 mL Specimens Obtained: none Complications: None Implant Company: [employer] INDICATION FOR PROCEDURE: The patient is an 41 year-old, who sustained a pathologic fracture of the intertrochanteric region, at the basicervical location. The patient and I discussed the risks, benefits and alternatives of treatment. The alternative for treatment is bedrest until the fracture feels well, which is generally not well tolerated due to the risks of bedsores, blood clots, pneumonia and deconditioning. I recommended intramedullary nailing, and I talked to her about the potential risks of this including risks of bleeding, infection, blood clots, malunion, nonunion or other potential surgical or anesthetic complications. All of her questions were answered about surgery and they desired to proceed. A written consent was obtained. PROCEDURE IN DETAIL: The patient was identified in the preoperative holding area. The correct right hip was marked by me. The patient was taken to the operating room, where a general anesthetic was used. Preoperative antibiotics were given intravenously. The HANA table was used and the well leg was placed in a padded lithotomy leg her while the foot of the fractured right leg was placed in a traction foot boot. The abdominal pannus was taped out of the field due to obesity, and required additional positioning. A time-out procedure was performed. The image intensifier was used, and a preliminary reduction performed and the fracture site confirmed. The hip area was prepped sterilely with ChloraPrep solution and a sterile barrier I[place] hip drape was used. An incision was made over the superior aspect of the greater trochanter. Additional incision and dissection was needed due to the patients obesity and size. The procedure took twice as long as average because of the patients size and additional dissection time. It was difficult to locate the femur through standard incisions because of the depth of adipose tissue. A standard scalpel was not able to reach the femur and additional instrumentation was used. A guide pin was placed at the tip of the greater trochanter, and an entry reamer was used with additional padding and repositioning of the femur, again due to adipose tissue. The intramedullary nail was attached to a guide and then was placed down the canal, and positioned using the image intensifier. A second incision was now used over the lower part of the greater trochanter, to place a guide pin through the guide and the sleeves, in the center-center position of the femoral head, and the guide wire was measured. The second incision also required additional dissection, with a Villarreal elevator, because the femur couldnt be reached with a scalpel. The tunnel for the lag screw was reamed. The lag screw was placed through the nail using the guide. A proximal locking screw was now placed to lock the lag screw. Finally, a distal cross lock screw was placed using the triple sleeve device through the guide. Screw position was confirmed with the image intensifier. Satisfactory reduction and fixation was confirmed using image intensifier views in multiple planes. Copious irrigation was used and the incision was now closed in layers by me with #2 Vicryl, 2-0 Vicryl and hannah. Local anesthetic 0.25% bupivacaine with epinephrine was injected for pain relief. A bulky sterile dressing was applied. The patient was gently transferred from the fracture table back to a hospital bed. There were no apparent complications. SADE BRASHER MD Jan 11, 2017 13:57
[2017-01-11] MEDS ORDERED: MORPHINE SULFATE 4 MG/ML DISP.SYRIN. IV PRN (14:00)
[2017-01-11] MEDS ORDERED: HYDROCODONE/APAP 7.5/325MG TABLET. PO PRN (14:00)
[2017-01-11] MEDS ORDERED: POLYETHYLENE GLYCOL 3350 17 GM PACKET. PO PRN (14:00)
[2017-01-11] MEDS ORDERED: MORPHINE SULFATE 2 MG/ML DISP.SYRIN. IV PRN (14:00)
[2017-01-11] MEDS ORDERED: DEXTROSE 50% 25 GM / 50ML DISP.SYRIN. IV PRN (14:00)
[2017-01-11] MEDS: MORPHINE SULFATE 2 MG/ML DISP.SYRIN. IV PRN ×2 (14:05→14:16)
[2017-01-11] MEDS: LOSARTAN POTASSIUM 25 MG TABLET. PO SCH (15:43)
[2017-01-11] MEDS: POTASSIUM CHLORIDE 30 MEQ in IV 1/2 NORMAL SALINE 1,000 ML IV SCH ×2 (15:46→16:18)
[2017-01-11] MEDS: CEFAZOLIN 2GM PREMIX 50 ML IV SCH (19:40)
[2017-01-11] MEDS: ASPIRIN 325 MG TABLET PO SCH (20:56)
[2017-01-12] MEDS: CEFAZOLIN 2GM PREMIX 50 ML IV SCH ×2 (00:35→06:10)
[2017-01-12] MEDS: HYDROMORPHONE 2 MG/ML VIAL. IV PRN ×5 (02:07→18:04)
[2017-01-12 03:03] VITALS: BP 155/87
[2017-01-12] MEDS: POTASSIUM CHLORIDE 30 MEQ in IV 1/2 NORMAL SALINE 1,000 ML IV SCH ×2 (03:22→14:10)
[2017-01-12] MEDS ORDERED: MAGNESIUM HYDROXIDE 2,400 MG/30 ML ORAL.SUSP. PO PRN (06:00)
[2017-01-12 07:00] VITALS: BP 119/60
[2017-01-12] MEDS ORDERED: PNEUMOC CONJ VACC 23-VALENT 0.5 ML VIAL. VAX IM ONE (09:00)
[2017-01-12] MEDS ORDERED: SENNOSIDES/DOCUSATE 8.6/50MG TABLET. PO SCH (09:00)
[2017-01-12] MEDS: ASPIRIN 325 MG TABLET PO SCH ×2 (09:55→20:00)
[2017-01-12] MEDS: VENLAFAXINE XR 37.5 MG CAP.ER.24H. PO SCH (09:55)
[2017-01-12] MEDS: DOCUSATE SODIUM 100 MG CAPSULE PO SCH ×2 (09:55→20:00)
[2017-01-12] MEDS: MULTIVITAMIN with MINERAL TABLET. PO SCH (09:55)
[2017-01-12] MEDS: SENNOSIDES/DOCUSATE 8.6/50MG TABLET. PO SCH ×2 (09:56→20:00)
[2017-01-12] MEDS: LOSARTAN POTASSIUM 25 MG TABLET. PO SCH (09:56)
[2017-01-12] MEDS: CHOLECALCIFEROL (VITAMIN D3) 1,000 UNIT TABLET PO SCH (09:56)
[2017-01-12] MEDS ORDERED: CARB100C PO (10:01)
[2017-01-12] MEDS ORDERED: LEVO150T5 PO (10:01)
[2017-01-12] MEDS ORDERED: AMIT150T PO (10:01)
[2017-01-12] MEDS ORDERED: VENL225T PO (10:02)
[2017-01-12] MEDS ORDERED: [UNRECOGNIZED DRUG - CODE] PO (10:07)
[2017-01-12] MEDS ORDERED: CARB200T13 PO (10:07)
[2017-01-12] MEDS ORDERED: OMEP20TA PO (10:07)
[2017-01-12 11:00] VITALS: BP 130/70
--- NOTE | 2017-01-12 11:57 | PDOC ---
PROGRESS NOTES Chief Complaint Chief Complaint 1. R fem neck fx, closed, traumatic after a mechanical fall s/p sx POD # 1 (01/11) 2. Critical Hypokalemia, replaced 3. Hypothyroidism, HTN, ANxiety NOS - chronic stable History of Present Illness History of Present Illness Working with pT today Only IV dilaudid helps NO rpt BMP and HH today - HH pending K 3.0 yesterday - was replaced yesterday PLAN: CPM REcheck HH now and BMP now Manuel RN PT./OT [place] dc planning Vitals Vitals Vital Signs Date Time Temp Pulse Resp B/P Pulse Ox O2 Delivery O2 Flow Rate FiO2 01/12/17 10:44 18 91 3.0 01/12/17 10:14 Nasal Cannula 01/12/17 09:56 89 119/60 01/12/17 07:00 98.5 98.5 Physical Exam General: Alert, Oriented X3, Cooperative, No acute distress, Other (soft reserved affect) Heart: Regular rate Abdomen: Soft Extremities: No edema, Normal pulses, Other (tenderness at the right hip joint. ) Skin: No rashes, No breakdown, Other (skin intact over the fracture) Review of Systems Review of Systems post op pain, no CP< SOA< emesis, n.v.d Assessment and Plan Assessmemt and Plan Problems Medical Problems: (1) Hip fracture Status: Acute Problems: Comment Review of Relevant I have reviewed the following items glenda (where applicable) has been applied. Labs Laboratory Tests Test 01/11/17 07:25 01/11/17 10:30 01/11/17 10:55 White Blood Count 8.5x10^3/uL (4.0-11.0) Red Blood Count 4.08x10^6/uL (3.50-5.40) Hemoglobin 12.3g/dL (12.0-15.5) Hematocrit 38.2% (36.0-47.0) Mean Corpuscular Volume 94fL (79-100) Mean Corpuscular Hemoglobin 30pg (25-35) Mean Corpuscular Hemoglobin Concent 32g/dL (31-37) Red Cell Distribution Width 14.9% (11.5-14.5) Platelet Count 232x10^3/uL (140-400) Neutrophils (%) (Auto) 59% (31-73) Lymphocytes (%) (Auto) 30% (24-48) Monocytes (%) (Auto) 9% (0-9) Eosinophils (%) (Auto) 2% (0-3) Basophils (%) (Auto) 1% (0-3) Neutrophils # (Auto) 5.0x10^3uL (1.8-7.7) Lymphocytes # (Auto) 2.5x10^3/uL (1.0-4.8) Monocytes # (Auto) 0.8x10^3/uL (0.0-1.1) Eosinophils # (Auto) 0.2x10^3/uL (0.0-0.7) Basophils # (Auto) 0.1x10^3/uL (0.0-0.2) Prothrombin Time 13.2SEC (11.7-14.0) Prothromb Time International Ratio 1.1 (0.8-1.1) Sodium Level 141mmol/L (136-145) Potassium Level 3.0mmol/L (3.5-5.1) Chloride Level 102mmol/L (98-107) Carbon Dioxide Level 27mmol/L (21-32) Anion Gap 12 (6-14) Blood Urea Nitrogen 7mg/dL (7-20) Creatinine 0.9mg/dL (0.6-1.0) Estimated GFR (Cockcroft-Gault) 68.3 BUN/Creatinine Ratio 8 (6-20) Glucose Level 83mg/dL (70-99) Calcium Level 9.4mg/dL (8.5-10.1) Phosphorus Level 3.1mg/dL (2.6-4.7) Magnesium Level 2.0mg/dL (1.8-2.4) Total Bilirubin 0.5mg/dL (0.2-1.0) Aspartate Amino Transf (AST/SGOT) 24U/L (15-37) Alanine Aminotransferase (ALT/SGPT) 31U/L (14-59) Alkaline Phosphatase 96U/L (46-116) Total Protein 7.3g/dL (6.4-8.2) Albumin 3.0g/dL (3.4-5.0) Albumin/Globulin Ratio 0.7 (1.0-1.7) Nasal Screen MRSA (PCR) Negative (Negative) Glucose (Fingerstick) 80mg/dL (70-99) Medications Current Medications Losartan Potassium (Cozaar) 25 mg DAILY PO Last administered on 01/12/17 09:56 ; Start 01/11/17 at 09:00 Venlafaxine HCl 37.5 mg 37.5 mg DAILY PO Last administered on 01/12/17 09:55; Start 01/11/17 at 09:00 Sodium Chloride (Iv Sodium Chloride 0.45%) 1,000 ml @ 100 mls/hr Q10H IV ; Start 01/10/17 at 19:16; Stop 01/10/17 at 19:23; Status DC Ondansetron HCl (Zofran) 4 mg PRN Q6HRS PRN IV NAUSEA/VOMITING; Start 01/10/17 at 19:30 Prochlorperazine Edisylate (Compazine) 10 mg PRN Q6HRS PRN IV NAUSEA/VOMITING; Start 01/10/17 at 19:30 Prochlorperazine (Compazine) 25 mg PRN Q12HR PRN AL NAUSEA/VOMITING; Start at 19:30 Al Hydroxide/Mg Hydroxide (Mylanta Plus Xs) 30 ml PRN Q3HRS PRN PO HEARTBURN / GAS; Start 01/10/17 at 19:30 Calcium Carbonate/ Glycine (Tums) 500 mg PRN Q3HRS PRN PO UPSET STOMACH; Start 01/10/17 at 19:30 Zolpidem Tartrate (Ambien) 5 mg PRN QHS PRN PO INSOMNIA, MAY REPEAT IN 1HR Last administered on 01/10/17 21:06; Start 01/10/17 at 19:30 Oxycodone HCl (Roxicodone) 5 mg PRN Q3HRS PRN PO BREAKTHROUGH PAIN Last administered on 01/11/17 15:43; Start 01/10/17 at 19:30 Morphine Sulfate 2 mg PRN Q2HR PRN IV PAIN; Start 01/10/17 at 19:30; Stop 01/10 at 19:45; Status DC Oxycodone/ Acetaminophen (Percocet 5/325) 1 tab PRN Q4HRS PRN PO MILD PAIN, 1ST CHOICE Last administered on 01/11/17 00:50; Start 01/10/17 at 19:30 Ketorolac Tromethamine (Toradol) 30 mg PRN Q6HRS PRN IV PAIN Last administered on 01/10/17 20:37; Start 01/10/17 at 19:30; Stop 01/15/17 at 19:29 Acetaminophen (Tylenol) 650 mg PRN Q6HRS PRN PO MILD PAIN / TEMP; Start at 19:30 Ibuprofen (Motrin) 400 mg PRN Q6HRS PRN PO MILD PAIN; Start 01/10/17 at 19:30 Senna/Docusate Sodium (Senna Plus) 1 tab BID PO Last administered on 01/12/17 09:56; Start 01/10/17 at 21:00 Docusate Sodium (Colace) 100 mg BID PO Last administered on 01/12/17 09:55; Start 01/10/17 at 21:00 Magnesium Hydroxide (Milk Of Magnesia) 2,400 mg PRN Q12HR PRN PO CONSTIPATION; Start 01/10/17 at 19:30 Lactulose 20 gm PRN Q12HR PRN PO CONSTIPATION; Start 01/10/17 at 19:30 Bisacodyl 10 mg 10 mg PRN DAILY PRN AL CONSTIPATION; Start 01/10/17 at 19:30 Potassium Chloride 100 ml @ 100 mls/hr Q1H IV Last administered on 01/11/17 05:19; Start 01/10/17 at 20:00; Stop 01/11/17 at 01:59; Status DC Potassium Chloride/Sodium Chloride (Iv Sodium Chloride 0.45%) 1,015 ml @ 100 mls/hr Q10H9M IV Last administered on 01/12/17 03:22; Start 01/10/17 at 20:00 Hydromorphone HCl (Dilaudid) 2 mg PRN Q4HRS PRN IV PAIN Last administered on 10:14; Start 01/10/17 at 19:45 Nicotine (Nicoderm Cq 21mg) 1 patch PRN DAILY PRN TD SMOKING CESSATION Last administered on 01/10/17 21:06; Start 01/10/17 at 20:15 Ondansetron HCl (Zofran) 4 mg PRN Q6HRS PRN IV Nausea; Start 01/11/17 at 08:15 ; Stop 01/12/17 at 08:14; Status DC Fentanyl Citrate (Fentanyl 2ml Vial) 25 mcg PRN Q5MIN PRN IV MILD PAIN; Start 01/11/17 at 08:15; Stop 01/12/17 at 08:14; Status DC Fentanyl Citrate (Fentanyl 2ml Vial) 50 mcg PRN Q5MIN PRN IV MODERATE PAIN Last administered on 01/11/17 14:21; Start 01/11/17 at 08:15; Stop 01/12/17 at 08:14; Status DC Morphine Sulfate 1 mg 1 mg PRN Q10MIN PRN IV SEVERE PAIN Last administered on 14:16; Start 01/11/17 at 08:15; Stop 01/12/17 at 08:14; Status DC Lactated Ringer's (Iv Lactated Ringers) 1,000 ml @ 0 mls/hr Q0M IV ; Start at 08:14; Stop 01/11/17 at 20:13; Status DC Lidocaine HCl 2 ml 1X PRN PRN ID IV START; Start 01/11/17 at 08:15; Stop at 08:14; Status DC Hydromorphone HCl (Dilaudid) 0.5 mg PRN Q10MIN PRN IV SEV PAIN,Second choice Last administered on 01/11/17 14:48; Start 01/11/17 at 08:15; Stop 01/12/17 at 08:14; Status DC Prochlorperazine Edisylate (Compazine) 5 mg PACU PRN PRN IV NAUSEA; Start 01/11 at 08:15; Stop 01/12/17 at 08:14; Status DC Pneumococcal Polyvalent Vaccine (Do NOT chart on this placeholder) 1 each 1X ONCE MC ; Start 01/11/17 at 08:45; Stop 01/11/17 at 08:46; Status DC Bupivacaine HCl/ Epinephrine Bitart 30 ml 30 ml STK-MED ONCE .ROUTE Last administered on 01/11/17 12:32; Start 01/11/17 at 09:35; Stop 01/11/17 at 09:36 ; Status DC Propofol (Diprivan) 20 ml @ As Directed STK-MED ONCE IV ; Start 01/11/17 at 10: 39; Stop 01/11/17 at 10:40; Status DC Lidocaine HCl 100 mg STK-MED ONCE .ROUTE ; Start 01/11/17 at 10:39; Stop at 10:40; Status DC Fentanyl Citrate (Fentanyl 2ml Vial) 100 mcg STK-MED ONCE .ROUTE ; Start at 10:40; Stop 01/11/17 at 10:41; Status DC Rocuronium [place] (Zemuron) 50 mg STK-MED ONCE .ROUTE ; Start 01/11/17 at 10:40 ; Stop 01/11/17 at 10:41; Status DC Famotidine (Pepcid) 20 mg STK-MED ONCE .ROUTE ; Start 01/11/17 at 10:40; Stop at 10:41; Status DC Ondansetron HCl (Zofran) 4 mg STK-MED ONCE .ROUTE ; Start 01/11/17 at 10:40; Stop 01/11/17 at 10:41; Status DC Phenylephrine HCl 1 mg STK-MED ONCE IV ; Start 01/11/17 at 10:40; Stop 01/11/17 at 10:41; Status DC Pneumococcal Polyvalent Vaccine 0.5 ml 0.5 ml ONCE ONCE VAX IM Last administered on 01/12/17t 10:29; Start 01/12/17 at 09:00; Stop 01/12/17 at 09:01 ; Status DC Cefazolin Sodium/ Dextrose (Ancef 2gm Premix) 50 ml @ As Directed STK-MED ONCE IV ; Start 01/11/17 at 11:21; Stop 01/11/17 at 11:22; Status DC Dexamethasone Sodium Phosphate (Decadron) 20 mg STK-MED ONCE .ROUTE ; Start at 12:35; Stop 01/11/17 at 12:36; Status DC Fentanyl Citrate (Fentanyl 2ml Vial) 100 mcg STK-MED ONCE .ROUTE ; Start at 13:25; Stop 01/11/17 at 13:26; Status DC Glycopyrrolate (Robinul) 1 mg STK-MED ONCE .ROUTE ; Start 01/11/17 at 13:39; Stop 01/11/17 at 13:40; Status DC Neostigmine Methylsulfate 5 mg STK-MED ONCE .ROUTE ; Start 01/11/17 at 13:39; Stop 01/11/17 at 13:40; Status DC Sevoflurane (Ultane) 60 ml STK-MED ONCE IH ; Start 01/11/17 at 13:42; Stop 01/11 at 13:43; Status DC Oxycodone HCl (Roxicodone) 5 mg PRN Q3HRS PRN PO PAIN; Start 01/11/17 at 14:00 Morphine Sulfate 2 mg PRN Q1HR PRN IV PAIN Last administered on 01/11/17 15:07 ; Start 01/11/17 at 14:00 Fentanyl Citrate (Fentanyl 2ml Vial) 25 mcg PRN Q1HR PRN IV PAIN; Start at 14:00 Multivitamins (Thera M Plus) 1 tab DAILY PO Last administered on 01/12/17 09: 55; Start 01/12/17 at 09:00 Senna/Docusate Sodium (Senna Plus) 1 tab DAILY PO ; Start 01/12/17 at 09:00; Stop 01/12/17 at 11:05; Status DC Polyethylene Glycol (miraLAX PACKET) 17 gm PRN DAILY PRN PO CONSTIPATION; Start 01/11/17 at 14:00 Vitamin D (Vitamin D3) 1,000 unit DAILY PO Last administered on 01/12/17 09:56 ; Start 01/12/17 at 09:00 Ondansetron HCl (Zofran) 4 mg PRN Q4HRS PRN IV NAUSEA/VOMITING; Start 01/11/17 at 14:00 Aspirin (Rodrigo Aspirin) 325 mg BID PO Last administered on 01/12/17 09:55; Start 01/11/17 at 21:00 Magnesium Hydroxide (Milk Of Magnesia) 2,400 mg 1X PRN PRN PO CONSTIPATION; Start 01/12/17 at 06:00; Stop 01/13/17 at 05:59 Bisacodyl (Dulcolax Supp) 10 mg 1X PRN PRN AL CONSTIPATION; Start 01/12/17 at 16:00; Stop 01/13/17 at 15:59 Acetaminophen/ Hydrocodone Bitart (Lortab 7.5/325) 1 tab PRN Q4HRS PRN PO PAIN ; Start 01/11/17 at 14:00 Morphine Sulfate 4 mg PRN Q2HR PRN IV PAIN; Start 01/11/17 at 14:00 Acetaminophen/ Hydrocodone Bitart (Lortab 7.5/325) 2 tab PRN Q4HRS PRN PO PAIN ; Start 01/11/17 at 14:00 Dextrose 12.5 gm 12.5 gm PRN Q15MIN PRN IV SEE COMMENTS; Start 01/11/17 at 14: 00 Cefazolin Sodium/ Dextrose (Ancef 2gm Premix) 50 ml @ 100 mls/hr Q6H IV Last administered on 01/12/17t 06:10; Start 01/11/17 at 18:00; Stop 01/12/17 at 06:29 ; Status DC Aspirin (Children'S Aspirin) 81 mg DAILY PO ; Start 01/13/17 at 09:00; Status UNV Atorvastatin Calcium (Lipitor) 10 mg QHS PO ; Start 01/12/17 at 21:00; Status UNV Carbamazepine (Tegretol Xr) 100 mg DAILY PO ; Start 01/13/17 at 09:00; Status UNV Levothyroxine Sodium (Synthroid) 150 mcg DAILY PO ; Start 01/13/17 at 09:00; Status UNV Non-Formulary Medication 1 tab QHS PO ; Start 01/12/17 at 21:00; Status UNV Non-Formulary Medication 200 mg HS PO ; Start 01/12/17 at 21:00; Status UNV Non-Formulary Medication 1 tab DAILY PO ; Start 01/13/17 at 09:00; Status UNV Non-Formulary Medication 1 tab DAILY PO ; Start 01/13/17 at 09:00; Status UNV Non-Formulary Medication 1 tab BID PO ; Start 01/12/17 at 21:00; Status UNV Non-Formulary Medication 10 meq BID PO ; Start 01/12/17 at 21:00; Status UNV Non-Formulary Medication 225 mg DAILY PO ; Start 01/13/17 at 09:00; Status UNV Active Scripts Active Reported Carbamazepine Er (Carbamazepine) 200 Mg Tab.er.12h 200 Mg PO HS Carbamazepine ER (Carbamazepine) 100 Mg Tab.er.12h 100 Mg PO DAILY Omeprazole 20 Mg Tablet.dr 1 Tab PO BID Venlafaxine Hcl Er (Venlafaxine Hcl) 225 Mg Tab.er.24 225 Mg PO DAILY Levothyroxine Sodium 150 Mcg Tablet 1 Tab PO DAILY Amitriptyline Hcl 150 Mg Tablet 1 Tab PO QHS Aspirin 81 Mg Tab.chew 1 Tab PO DAILY Lipitor (Atorvastatin Calcium) 10 Mg Tablet 1 Tab PO QHS Estradiol 2 Mg Tablet 1 Tab PO DAILY Losartan-Hctz 100-12.5 Mg Tab (Losartan/Hydrochlorothiazide) 1 Each Tablet 1 Tab PO DAILY Potassium Chloride 10 Meq Tablet.er 10 Meq PO BID Losartan Potassium 25 Mg Tablet 25 Mg PO DAILY Vitals/I & O Vital Sign - Last 24 Hours 01/11/17 01/11/17 01/11/17 01/11/17 13:43 13:52 13:58 14:02 Temp 97.8 97.8 Pulse 70 77 Resp 14 16 B/P 114/79 141/67 Pulse Ox 100 100 95 98 O2 Delivery Simple Mask Simple Mask Nasal Cannula Room Air O2 Flow Rate 10 10.0 2 01/11/17 01/11/17 01/11/17 01/11/17 14:05 14:11 14:13 14:16 Pulse 69 Resp 14 B/P 134/82 Pulse Ox 95 97 99 100 O2 Delivery Room Air Nasal Cannula Nasal Cannula Nasal Cannula O2 Flow Rate 2.0 3 2.0 01/11/17 01/11/17 01/11/17 01/11/17 14:21 14:25 14:28 14:32 Temp 98.6 98.6 Pulse 64 Resp 14 B/P 145/72 Pulse Ox 100 99 100 O2 Delivery Nasal Cannula Nasal Cannula Nasal Cannula Nasal Cannula O2 Flow Rate 3.0 3.0 3 3 01/11/17 01/11/17 01/11/17 01/11/17 14:36 14:43 14:48 15:00 Pulse 66 Resp 16 B/P Pulse Ox 97 98 98 O2 Delivery Nasal Cannula Nasal Cannula Nasal Cannula Nasal Cannula O2 Flow Rate 3.0 3 3.0 3.0 01/11/17 01/11/17 01/11/17 01/11/17 15:00 15:00 15:00 15:07 Temp 98.3 98.3 Pulse 96 Resp 18 B/P 151/85 Pulse Ox 90 O2 Delivery Nasal Cannula Nasal Cannula Room Air Nasal Cannula O2 Flow Rate 3.0 3.0 3.0 01/11/17 01/11/17 01/11/17 01/11/17 15:15 15:30 15:37 15:43 Pulse 79 84 77 Resp 20 18 18 B/P 151/79 141/81 141/81 Pulse Ox 89 88 O2 Delivery Nasal Cannula Nasal Cannula Nasal Cannula O2 Flow Rate 3.0 3.0 3.0 01/11/17 01/11/17 01/11/17 01/11/17 15:43 15:45 16:00 16:30 Temp 98.1 98.1 Pulse 84 84 82 Resp 18 18 18 18 B/P 139/86 143/87 142/85 Pulse Ox 89 88 89 O2 Delivery Nasal Cannula Nasal Cannula Nasal Cannula Nasal Cannula O2 Flow Rate 3.0 3.0 3.0 3.0 01/11/17 01/11/17 01/11/17 01/11/17 16:43 17:58 19:27 19:35 Temp 98.4 98.4 Pulse 86 Resp 16 18 B/P 149/92 Pulse Ox 88 O2 Delivery Nasal Cannula Nasal Cannula Nasal Cannula Nasal Cannula O2 Flow Rate 3.0 3.0 3.0 3.0 01/11/17 01/11/17 01/12/17 01/12/17 22:06 23:00 02:07 02:37 Temp 98.1 98.1 Pulse 71 Resp 18 18 20 B/P 126/65 Pulse Ox 90 O2 Delivery Nasal Cannula Nasal Cannula Nasal Cannula Nasal Cannula O2 Flow Rate 3.0 3.0 3.0 01/12/17 01/12/17 01/12/17 01/12/17 03:03 06:10 07:00 09:56 Temp 98.4 98.5 98.4 98.5 Pulse 90 89 89 Resp 18 20 18 B/P 155/87 119/60 119/60 Pulse Ox 87 93 O2 Delivery Room Air Nasal Cannula Nasal Cannula O2 Flow Rate 3.0 3.0 01/12/17 01/12/17 10:14 10:44 Resp 18 Pulse Ox 91 91 O2 Delivery Nasal Cannula O2 Flow Rate 3.0 3.0 Intake and Output 01/11/17 01/11/17 01/12/17 15:00 23:00 07:00 Intake Total 1100 ml 440 ml 2880 ml Output Total 2575 ml 325 ml 2000 ml Balance -1475 ml 115 ml 880 ml ASHWINI HAQUE MD Jan 12, 2017 11:57
--- NOTE | 2017-01-12 12:37 | PDOC ---
PROGRESS NOTES Subjective Subjective less pain than she expected. Was able to ambulate with walker in hallway. Chronic foot cramps (and usually takes potassium) and symptoms recurred in bilateral feet. Objective Vital Signs Vital Signs Date Time Temp Pulse Resp B/P Pulse Ox O2 Delivery O2 Flow Rate FiO2 01/12/17 11:00 97.5 69 18 130/70 93 Nasal Cannula 3.0 97.5 Physical Exam Dressing dry. Calf soft and NT and Juna's negative. Distal NVI. Labs Laboratory Tests Test 01/11/17 07:25 01/11/17 10:30 01/11/17 10:55 White Blood Count 8.5x10^3/uL (4.0-11.0) Red Blood Count 4.08x10^6/uL (3.50-5.40) Hemoglobin 12.3g/dL (12.0-15.5) Hematocrit 38.2% (36.0-47.0) Mean Corpuscular Volume 94fL (79-100) Mean Corpuscular Hemoglobin 30pg (25-35) Mean Corpuscular Hemoglobin Concent 32g/dL (31-37) Red Cell Distribution Width 14.9% (11.5-14.5) Platelet Count 232x10^3/uL (140-400) Neutrophils (%) (Auto) 59% (31-73) Lymphocytes (%) (Auto) 30% (24-48) Monocytes (%) (Auto) 9% (0-9) Eosinophils (%) (Auto) 2% (0-3) Basophils (%) (Auto) 1% (0-3) Neutrophils # (Auto) 5.0x10^3uL (1.8-7.7) Lymphocytes # (Auto) 2.5x10^3/uL (1.0-4.8) Monocytes # (Auto) 0.8x10^3/uL (0.0-1.1) Eosinophils # (Auto) 0.2x10^3/uL (0.0-0.7) Basophils # (Auto) 0.1x10^3/uL (0.0-0.2) Prothrombin Time 13.2SEC (11.7-14.0) Prothromb Time International Ratio 1.1 (0.8-1.1) Sodium Level 141mmol/L (136-145) Potassium Level 3.0mmol/L (3.5-5.1) Chloride Level 102mmol/L (98-107) Carbon Dioxide Level 27mmol/L (21-32) Anion Gap 12 (6-14) Blood Urea Nitrogen 7mg/dL (7-20) Creatinine 0.9mg/dL (0.6-1.0) Estimated GFR (Cockcroft-Gault) 68.3 BUN/Creatinine Ratio 8 (6-20) Glucose Level 83mg/dL (70-99) Calcium Level 9.4mg/dL (8.5-10.1) Phosphorus Level 3.1mg/dL (2.6-4.7) Magnesium Level 2.0mg/dL (1.8-2.4) Total Bilirubin 0.5mg/dL (0.2-1.0) Aspartate Amino Transf (AST/SGOT) 24U/L (15-37) Alanine Aminotransferase (ALT/SGPT) 31U/L (14-59) Alkaline Phosphatase 96U/L (46-116) Total Protein 7.3g/dL (6.4-8.2) Albumin 3.0g/dL (3.4-5.0) Albumin/Globulin Ratio 0.7 (1.0-1.7) Nasal Screen MRSA (PCR) Negative (Negative) Glucose (Fingerstick) 80mg/dL (70-99) Assessment Assessment POD#1 R hip nail for displaced femoral neck (basicervical) stress fracture Chronic hypokalemia and hypokalemia on admission Problems: Plan Plan of Care Will add oral supplemental potassium and magnesium and a muscle relaxer. Continue PT and WBAT. Discharge planning, possibly tomorrow. SADE BRASHER MD Jan 12, 2017 12:36
[2017-01-12] MEDS ORDERED: CYCLOBENZAPRINE 10 MG TABLET. PO PRN (12:45)
[2017-01-12] MEDS: HYDROCHLOROTHIAZIDE 12.5 MG CAPSULE. PO SCH (13:29)
[2017-01-12] MEDS: VENLAFAXINE 75 MG TABLET. PO SCH ×2 (13:30→19:59)
[2017-01-12] MEDS: LOSARTAN POTASSIUM 50 MG TABLET. PO SCH (13:30)
[2017-01-12] MEDS: CARBAMAZEPINE 100 MG PO SCH ×2 (13:31→19:59)
[2017-01-12] MEDS: ESTRADIOL 1 MG TABLET PO SCH (13:31)
[2017-01-12] MEDS: PANTOPRAZOLE 40 MG TABLET. PO SCH (13:31)
[2017-01-12 14:28] LABS: HEMATOCRIT 30.5 % (36.0-47.0); HEMOGLOBIN 9.9 g/dL (12.0-15.5)
[2017-01-12 14:33] LABS: CALCIUM 8.8 mg/dL (8.5-10.1); CREATININE 0.9 mg/dL (0.6-1.0); GFR 68.3; POTASSIUM 3.4 mmol/L (3.5-5.1)
[2017-01-12 15:00] VITALS: BP 124/61
[2017-01-12] MEDS ORDERED: BISACODYL 10 MG SUPP.RECT. PR PRN (16:00)
[2017-01-12] MEDS ORDERED: POTASSIUM CHLORIDE 10 MEQ TABLET.ER. PO SCH (17:00)
[2017-01-12] MEDS: POTASSIUM CHLORIDE 20 MEQ TABLET.ER. PO SCH (18:00)
[2017-01-12 19:00] VITALS: BP 118/78
[2017-01-12] MEDS: AMITRIPTYLINE HCL 50 MG TABLET PO SCH (19:59)
[2017-01-12] MEDS: MAGNESIUM CHLORIDE ER 64 MG TABLET.ER PO SCH ×2 (20:00)
[2017-01-12] MEDS: ATORVASTATIN CALCIUM 10 MG TABLET. PO SCH (20:00)
[2017-01-12 23:21] VITALS: BP 123/71
[2017-01-12] MEDS: HYDROCODONE/APAP 7.5/325MG TABLET. PO PRN (23:21)
[2017-01-13] MEDS: POTASSIUM CHLORIDE 30 MEQ in IV 1/2 NORMAL SALINE 1,000 ML IV SCH ×3 (00:52→17:47)
[2017-01-13 03:35] VITALS: BP 113/61
[2017-01-13] MEDS: PANTOPRAZOLE 40 MG TABLET. PO SCH (06:50)
[2017-01-13] MEDS: LEVOTHYROXINE 150 MCG TABLET PO SCH (06:50)
[2017-01-13 07:00] VITALS: BP 110/76
[2017-01-13] MEDS ORDERED: ASPIRIN 81 MG TAB.CHEW PO SCH (09:00)
[2017-01-13] MEDS: SENNOSIDES/DOCUSATE 8.6/50MG TABLET. PO SCH ×2 (09:10→21:04)
[2017-01-13] MEDS: MULTIVITAMIN with MINERAL TABLET. PO SCH (09:10)
[2017-01-13] MEDS: POTASSIUM CHLORIDE 20 MEQ TABLET.ER. PO SCH ×2 (09:10→17:46)
[2017-01-13] MEDS: CARBAMAZEPINE 100 MG PO SCH ×2 (09:11→21:04)
[2017-01-13] MEDS: HYDROCHLOROTHIAZIDE 12.5 MG CAPSULE. PO SCH (09:11)
[2017-01-13] MEDS: ESTRADIOL 1 MG TABLET PO SCH (09:11)
[2017-01-13] MEDS: CHOLECALCIFEROL (VITAMIN D3) 1,000 UNIT TABLET PO SCH (09:11)
[2017-01-13] MEDS: LOSARTAN POTASSIUM 50 MG TABLET. PO SCH (09:11)
[2017-01-13] MEDS: VENLAFAXINE 75 MG TABLET. PO SCH ×3 (09:11→21:05)
[2017-01-13] MEDS: DOCUSATE SODIUM 100 MG CAPSULE PO SCH (09:12)
[2017-01-13] MEDS: ASPIRIN 325 MG TABLET PO SCH ×2 (09:13→21:04)
[2017-01-13] MEDS: OXYCODONE IR 5 MG TABLET. PO PRN ×4 (09:18→21:05)
--- NOTE | 2017-01-13 10:16 | PDOC ---
PROGRESS NOTES Chief Complaint Chief Complaint Right femoral neck fracture, closed, traumatic after a mechanical fall s/p surgery, POD # 2 (01/11/17) History of Present Illness History of Present Illness No acute events overnight. Patient was able to walk with PT yesterday. She is still reporting pain to her right him. She would prefer to discharge home instead of rehab, but she lives in a retirement house with metal bunkbeds that are causing her some concern. Vitals Vitals Vital Signs Date Time Temp Pulse Resp B/P Pulse Ox O2 Delivery O2 Flow Rate FiO2 01/13/17 09:18 18 Nasal Cannula 2.0 01/13/17 09:11 84 110/76 01/13/17 07:00 97.5 95 97.5 Physical Exam General: Alert, Oriented X3, Cooperative, No acute distress Heart: Regular rate, Normal S1, Normal S2 Lungs: Clear, Other (no wheezing) Abdomen: Soft, No tenderness Extremities: No edema, Normal pulses, Other (tenderness to right hip) Skin: No rashes, No breakdown Labs LABS Laboratory Tests Test 01/12/17 14:00 Hemoglobin 9.9g/dL (12.0-15.5) Hematocrit 30.5% (36.0-47.0) Mean Corpuscular Hemoglobin Concent 32g/dL (31-37) Sodium Level 138mmol/L (136-145) Potassium Level 3.4mmol/L (3.5-5.1) Chloride Level 101mmol/L (98-107) Carbon Dioxide Level 27mmol/L (21-32) Anion Gap 10 (6-14) Blood Urea Nitrogen 6mg/dL (7-20) Creatinine 0.9mg/dL (0.6-1.0) Estimated GFR (Cockcroft-Gault) 68.3 Glucose Level 127mg/dL (70-99) Calcium Level 8.8mg/dL (8.5-10.1) Review of Systems Review of Systems Denies chest pain and shortness of breath. Denies fever and chills. Right hip is still painful. Assessment and Plan Assessmemt and Plan Problems Medical Problems: (1) Hip fracture Status: Acute ASSESSMENT: 1. R fem neck fx, closed, traumatic after a mechanical fall s/p sx POD # 2 (01/11) 2. Critical Hypokalemia, replaced 3. Hypothyroidism, HTN, ANxiety NOS - chronic stable PLAN: Orthopedic surgery following, their recommendations are appreciated. Continue PT/OT Continue pain control Encourage ambulation Monitor daily labs Plan discussed with RN Probable discharge today if cleared by orthopedic surgery Problems: Comment Review of Relevant I have reviewed the following items glenda (where applicable) has been applied. Labs Laboratory Tests Test 01/11/17 10:30 01/11/17 10:55 01/12/17 04:30 01/12/17 14:00 Nasal Screen MRSA (PCR) Negative (Negative) Glucose (Fingerstick) 80mg/dL (70-99) 25-Hydroxy Vitamin D Total 32.8ng/mL (30.0-100.0) Hemoglobin 9.9g/dL (12.0-15.5) Hematocrit 30.5% (36.0-47.0) Mean Corpuscular Hemoglobin Concent 32g/dL (31-37) Sodium Level 138mmol/L (136-145) Potassium Level 3.4mmol/L (3.5-5.1) Chloride Level 101mmol/L (98-107) Carbon Dioxide Level 27mmol/L (21-32) Anion Gap 10 (6-14) Blood Urea Nitrogen 6mg/dL (7-20) Creatinine 0.9mg/dL (0.6-1.0) Estimated GFR (Cockcroft-Gault) 68.3 Glucose Level 127mg/dL (70-99) Calcium Level 8.8mg/dL (8.5-10.1) Laboratory Tests Test 01/12/17 14:00 Hemoglobin 9.9g/dL (12.0-15.5) Hematocrit 30.5% (36.0-47.0) Mean Corpuscular Hemoglobin Concent 32g/dL (31-37) Sodium Level 138mmol/L (136-145) Potassium Level 3.4mmol/L (3.5-5.1) Chloride Level 101mmol/L (98-107) Carbon Dioxide Level 27mmol/L (21-32) Anion Gap 10 (6-14) Blood Urea Nitrogen 6mg/dL (7-20) Creatinine 0.9mg/dL (0.6-1.0) Estimated GFR (Cockcroft-Gault) 68.3 Glucose Level 127mg/dL (70-99) Calcium Level 8.8mg/dL (8.5-10.1) Medications Current Medications Losartan Potassium (Cozaar) 25 mg DAILY PO Last administered on 01/12/17 09:56 ; Start 01/11/17 at 09:00; Stop 01/12/17 at 12:16; Status DC Venlafaxine HCl 37.5 mg 37.5 mg DAILY PO Last administered on 01/12/17 09:55; Start 01/11/17 at 09:00; Stop 01/12/17 at 11:56; Status DC Sodium Chloride (Iv Sodium Chloride 0.45%) 1,000 ml @ 100 mls/hr Q10H IV ; Start 01/10/17 at 19:16; Stop 01/10/17 at 19:23; Status DC Ondansetron HCl (Zofran) 4 mg PRN Q6HRS PRN IV NAUSEA/VOMITING; Start 01/10/17 at 19:30; Stop 01/12/17 at 14:26; Status DC Prochlorperazine Edisylate (Compazine) 10 mg PRN Q6HRS PRN IV NAUSEA/VOMITING; Start 01/10/17 at 19:30 Prochlorperazine (Compazine) 25 mg PRN Q12HR PRN AK NAUSEA/VOMITING; Start at 19:30 Al Hydroxide/Mg Hydroxide (Mylanta Plus Xs) 30 ml PRN Q3HRS PRN PO HEARTBURN / GAS Last administered on 01/12/17 20:00; Start 01/10/17 at 19:30 Calcium Carbonate/ Glycine (Tums) 500 mg PRN Q3HRS PRN PO UPSET STOMACH; Start 01/10/17 at 19:30 Zolpidem Tartrate (Ambien) 5 mg PRN QHS PRN PO INSOMNIA, MAY REPEAT IN 1HR Last administered on 01/10/17 21:06; Start 01/10/17 at 19:30 Oxycodone HCl (Roxicodone) 5 mg PRN Q3HRS PRN PO BREAKTHROUGH PAIN Last administered on 01/11/17 15:43; Start 01/10/17 at 19:30; Stop 01/12/17 at 14:25 ; Status DC Morphine Sulfate 2 mg PRN Q2HR PRN IV PAIN; Start 01/10/17 at 19:30; Stop 01/10 at 19:45; Status DC Oxycodone/ Acetaminophen (Percocet 5/325) 1 tab PRN Q4HRS PRN PO MILD PAIN, 1ST CHOICE Last administered on 01/11/17 00:50; Start 01/10/17 at 19:30 Ketorolac Tromethamine (Toradol) 30 mg PRN Q6HRS PRN IV PAIN Last administered on 01/10/17 20:37; Start 01/10/17 at 19:30; Stop 01/15/17 at 19:29 Acetaminophen (Tylenol) 650 mg PRN Q6HRS PRN PO MILD PAIN / TEMP; Start at 19:30 Ibuprofen (Motrin) 400 mg PRN Q6HRS PRN PO MILD PAIN; Start 01/10/17 at 19:30 Senna/Docusate Sodium (Senna Plus) 1 tab BID PO Last administered on 01/13/17 09:10; Start 01/10/17 at 21:00 Docusate Sodium (Colace) 100 mg BID PO Last administered on 01/13/17 09:12; Start 01/10/17 at 21:00 Magnesium Hydroxide (Milk Of Magnesia) 2,400 mg PRN Q12HR PRN PO CONSTIPATION; Start 01/10/17 at 19:30 Lactulose 20 gm PRN Q12HR PRN PO CONSTIPATION; Start 01/10/17 at 19:30 Bisacodyl 10 mg 10 mg PRN DAILY PRN AK CONSTIPATION; Start 01/10/17 at 19:30 Potassium Chloride 100 ml @ 100 mls/hr Q1H IV Last administered on 01/11/17 05:19; Start 01/10/17 at 20:00; Stop 01/11/17 at 01:59; Status DC Potassium Chloride/Sodium Chloride (Iv Sodium Chloride 0.45%) 1,015 ml @ 100 mls/hr Q10H9M IV Last administered on 01/13/17 00:52; Start 01/10/17 at 20:00 Hydromorphone HCl (Dilaudid) 2 mg PRN Q4HRS PRN IV PAIN Last administered on 18:04; Start 01/10/17 at 19:45 Nicotine (Nicoderm Cq 21mg) 1 patch PRN DAILY PRN TD SMOKING CESSATION Last administered on 01/10/17 21:06; Start 01/10/17 at 20:15 Ondansetron HCl (Zofran) 4 mg PRN Q6HRS PRN IV Nausea; Start 01/11/17 at 08:15 ; Stop 01/12/17 at 08:14; Status DC Fentanyl Citrate (Fentanyl 2ml Vial) 25 mcg PRN Q5MIN PRN IV MILD PAIN; Start 01/11/17 at 08:15; Stop 01/12/17 at 08:14; Status DC Fentanyl Citrate (Fentanyl 2ml Vial) 50 mcg PRN Q5MIN PRN IV MODERATE PAIN Last administered on 01/11/17 14:21; Start 01/11/17 at 08:15; Stop 01/12/17 at 08:14; Status DC Morphine Sulfate 1 mg 1 mg PRN Q10MIN PRN IV SEVERE PAIN Last administered on 14:16; Start 01/11/17 at 08:15; Stop 01/12/17 at 08:14; Status DC Lactated Ringer's (Iv Lactated Ringers) 1,000 ml @ 0 mls/hr Q0M IV ; Start at 08:14; Stop 01/11/17 at 20:13; Status DC Lidocaine HCl 2 ml 1X PRN PRN ID IV START; Start 01/11/17 at 08:15; Stop at 08:14; Status DC Hydromorphone HCl (Dilaudid) 0.5 mg PRN Q10MIN PRN IV SEV PAIN,Second choice Last administered on 01/11/17 14:48; Start 01/11/17 at 08:15; Stop 01/12/17 at 08:14; Status DC Prochlorperazine Edisylate (Compazine) 5 mg PACU PRN PRN IV NAUSEA; Start 01/11 at 08:15; Stop 01/12/17 at 08:14; Status DC Pneumococcal Polyvalent Vaccine (Do NOT chart on this placeholder) 1 each 1X ONCE MC ; Start 01/11/17 at 08:45; Stop 01/11/17 at 08:46; Status DC Bupivacaine HCl/ Epinephrine Bitart 30 ml 30 ml Patients Know Best-[employer] ONCE .ROUTE Last administered on 01/11/17t 12:32; Start 01/11/17 at 09:35; Stop 01/11/17 at 09:36 ; Status DC Propofol (Diprivan) 20 ml @ As Directed STK-MED ONCE IV ; Start 01/11/17 at 10: 39; Stop 01/11/17 at 10:40; Status DC Lidocaine HCl 100 mg STK-MED ONCE .ROUTE ; Start 01/11/17 at 10:39; Stop at 10:40; Status DC Fentanyl Citrate (Fentanyl 2ml Vial) 100 mcg STK-MED ONCE .ROUTE ; Start at 10:40; Stop 01/11/17 at 10:41; Status DC Rocuronium Johnson (Zemuron) 50 mg STK-MED ONCE .ROUTE ; Start 01/11/17 at 10:40 ; Stop 01/11/17 at 10:41; Status DC Famotidine (Pepcid) 20 mg STK-MED ONCE .ROUTE ; Start 01/11/17 at 10:40; Stop at 10:41; Status DC Ondansetron HCl (Zofran) 4 mg STK-MED ONCE .ROUTE ; Start 01/11/17 at 10:40; Stop 01/11/17 at 10:41; Status DC Phenylephrine HCl 1 mg STK-MED ONCE IV ; Start 01/11/17 at 10:40; Stop 01/11/17 at 10:41; Status DC Pneumococcal Polyvalent Vaccine 0.5 ml 0.5 ml ONCE ONCE VAX IM Last administered on 01/12/17t 10:29; Start 01/12/17 at 09:00; Stop 01/12/17 at 09:01 ; Status DC Cefazolin Sodium/ Dextrose (Ancef 2gm Premix) 50 ml @ As Directed STK-MED ONCE IV ; Start 01/11/17 at 11:21; Stop 01/11/17 at 11:22; Status DC Dexamethasone Sodium Phosphate (Decadron) 20 mg STK-MED ONCE .ROUTE ; Start at 12:35; Stop 01/11/17 at 12:36; Status DC Fentanyl Citrate (Fentanyl 2ml Vial) 100 mcg STK-MED ONCE .ROUTE ; Start at 13:25; Stop 01/11/17 at 13:26; Status DC Glycopyrrolate (Robinul) 1 mg STK-MED ONCE .ROUTE ; Start 01/11/17 at 13:39; Stop 01/11/17 at 13:40; Status DC Neostigmine Methylsulfate 5 mg STK-MED ONCE .ROUTE ; Start 01/11/17 at 13:39; Stop 01/11/17 at 13:40; Status DC Sevoflurane (Ultane) 60 ml STK-MED ONCE IH ; Start 01/11/17 at 13:42; Stop 01/11 at 13:43; Status DC Oxycodone HCl (Roxicodone) 5 mg PRN Q3HRS PRN PO PAIN Last administered on 01/13 09:18; Start 01/11/17 at 14:00 Morphine Sulfate 2 mg PRN Q1HR PRN IV PAIN Last administered on 01/11/17 15:07 ; Start 01/11/17 at 14:00 Fentanyl Citrate (Fentanyl 2ml Vial) 25 mcg PRN Q1HR PRN IV PAIN; Start at 14:00 Multivitamins (Thera M Plus) 1 tab DAILY PO Last administered on 01/13/17 09: 10; Start 01/12/17 at 09:00 Senna/Docusate Sodium (Senna Plus) 1 tab DAILY PO ; Start 01/12/17 at 09:00; Stop 01/12/17 at 11:05; Status DC Polyethylene Glycol (miraLAX PACKET) 17 gm PRN DAILY PRN PO CONSTIPATION; Start 01/11/17 at 14:00 Vitamin D (Vitamin D3) 1,000 unit DAILY PO Last administered on 01/13/17 09:11 ; Start 01/12/17 at 09:00 Ondansetron HCl (Zofran) 4 mg PRN Q4HRS PRN IV NAUSEA/VOMITING; Start 01/11/17 at 14:00 Aspirin (Rodrigo Aspirin) 325 mg BID PO Last administered on 01/13/17 09:13; Start 01/11/17 at 21:00 Magnesium Hydroxide (Milk Of Magnesia) 2,400 mg 1X PRN PRN PO CONSTIPATION; Start 01/12/17 at 06:00; Stop 01/13/17 at 05:59; Status DC Bisacodyl (Dulcolax Supp) 10 mg 1X PRN PRN [place] CONSTIPATION; Start 01/12/17 at 16:00; Stop 01/13/17 at 15:59 Acetaminophen/ Hydrocodone Bitart (Lortab 7.5/325) 1 tab PRN Q4HRS PRN PO PAIN Last administered on 01/12/17 23:21; Start 01/11/17 at 14:00 Morphine Sulfate 4 mg PRN Q2HR PRN IV PAIN; Start 01/11/17 at 14:00 Acetaminophen/ Hydrocodone Bitart (Lortab 7.5/325) 2 tab PRN Q4HRS PRN PO PAIN Last administered on 01/13/17 06:50; Start 01/11/17 at 14:00 Dextrose 12.5 gm 12.5 gm PRN Q15MIN PRN IV SEE COMMENTS; Start 01/11/17 at 14: 00 Cefazolin Sodium/ Dextrose (Ancef 2gm Premix) 50 ml @ 100 mls/hr Q6H IV Last administered on 01/12/17 06:10; Start 01/11/17 at 18:00; Stop 01/12/17 at 06:29 ; Status DC Aspirin (Children'S Aspirin) 81 mg DAILY PO ; Start 01/13/17 at 09:00; Stop at 09:00; Status DC Atorvastatin Calcium (Lipitor) 10 mg QHS PO Last administered on 01/12/17 20: 00; Start 01/12/17 at 21:00 Carbamazepine (Tegretol Xr) 100 mg DAILY PO Last administered on 01/13/17 09: 11; Start 01/12/17 at 12:00 Levothyroxine Sodium (Synthroid) 150 mcg DAILY07 PO Last administered on 06:50; Start 01/13/17 at 07:00 Amitriptyline HCl (Elavil) 150 mg QHS PO Last administered on 01/12/17 19:59; Start 01/12/17 at 21:00 Carbamazepine (Tegretol Xr) 200 mg QHS PO Last administered on 01/12/17 19:59 ; Start 01/12/17 at 21:00 Estradiol (Estrace) 2 mg DAILY PO Last administered on 01/13/17 09:11; Start 01/12/17 at 12:00 Losartan Potassium (Cozaar) 100 mg DAILY PO Last administered on 01/13/17 09: 11; Start 01/12/17 at 12:00 Pantoprazole Sodium (Protonix) 40 mg DAILYAC PO Last administered on 01/13/17 06:50; Start 01/12/17 at 12:00 Potassium Chloride (Klor-Con) 10 meq BIDWMEALS PO ; Start 01/12/17 at 17:00; Status Cancel Venlafaxine HCl (Effexor) 75 mg TID PO Last administered on 01/13/17 09:11; Start 01/12/17 at 14:00 Hydrochlorothiazide (Microzide) 12.5 mg DAILY PO Last administered on 09:11; Start 01/12/17 at 12:00 Potassium Chloride (Klor-Con) 20 meq BIDWMEALS PO Last administered on 09:10; Start 01/12/17 at 17:00 Magnesium Chloride (Mag Delay) 64 mg QHS PO Last administered on 01/12/17 20: 00; Start 01/12/17 at 21:00 Cyclobenzaprine HCl (Flexeril) 10 mg PRN Q6HRS PRN PO MUSCLE SPASMS Last administered on 01/12/17 20:00; Start 01/12/17 at 12:45 Cefazolin Sodium/ Dextrose (Ancef 2gm Premix) 2 gm STK-MED ONCE IV ; Start 01/11 at 11:21; Stop 01/13/17 at 08:09; Status DC Active Scripts Active Reported Carbamazepine Er (Carbamazepine) 200 Mg Tab.er.12h 200 Mg PO HS Carbamazepine ER (Carbamazepine) 100 Mg Tab.er.12h 100 Mg PO DAILY Omeprazole 20 Mg Tablet.dr 1 Tab PO BID Venlafaxine Hcl Er (Venlafaxine Hcl) 225 Mg Tab.er.24 225 Mg PO DAILY Levothyroxine Sodium 150 Mcg Tablet 1 Tab PO DAILY Amitriptyline Hcl 150 Mg Tablet 1 Tab PO QHS Aspirin 81 Mg Tab.chew 1 Tab PO DAILY Lipitor (Atorvastatin Calcium) 10 Mg Tablet 1 Tab PO QHS Estradiol 2 Mg Tablet 1 Tab PO DAILY Losartan-Hctz 100-12.5 Mg Tab (Losartan/Hydrochlorothiazide) 1 Each Tablet 1 Tab PO DAILY Potassium Chloride 10 Meq Tablet.er 10 Meq PO BID Vitals/I & O Vital Sign - Last 24 Hours 01/12/17 01/12/17 01/12/17 01/12/17 10:14 11:00 13:30 14:17 Temp 97.5 97.5 Pulse 69 69 Resp 18 18 B/P 130/70 130/70 Pulse Ox 91 93 O2 Delivery Nasal Cannula Nasal Cannula Nasal Cannula O2 Flow Rate 3.0 3.0 3.0 01/12/17 01/12/17 01/12/17 01/12/17 14:47 15:00 18:04 18:34 Temp 97.9 97.9 Pulse 67 Resp 18 B/P 124/61 Pulse Ox 90 94 O2 Delivery Nasal Cannula Room Air Nasal Cannula O2 Flow Rate 3.0 3.0 01/12/17 01/12/17 01/12/17 01/13/17 19:00 20:00 23:21 03:35 Temp 97.9 98.3 98.3 97.9 98.3 98.3 Pulse 94 81 80 Resp 18 B/P 118/78 123/71 113/61 Pulse Ox 97 91 91 O2 Delivery Nasal Cannula Nasal Cannula Nasal Cannula Nasal Cannula O2 Flow Rate 3.0 3.0 3.0 3.0 01/13/17 01/13/17 01/13/17 01/13/17 07:00 07:50 09:11 09:18 Temp 97.5 97.5 Pulse 84 84 Resp 10 06 18 B/P 110/76 110/76 Pulse Ox 95 O2 Delivery Nasal Cannula Nasal Cannula Nasal Cannula O2 Flow Rate 3.0 2.0 2.0 Intake and Output 01/12/17 01/12/17 01/13/17 15:00 23:00 07:00 Intake Total 1000 ml Output Total 1350 ml 2200 ml Balance 1000 ml -1350 ml -2200 ml SHELBY GANNON III DO Jan 13, 2017 10:16
[2017-01-13 11:00] VITALS: BP 102/49
--- NOTE | 2017-01-13 13:11 | PDOC ---
PROGRESS NOTES Subjective Subjective Doing better today. She has gotten up and ambulated with her walker, without difficulty. Objective Vital Signs Vital Signs Date Time Temp Pulse Resp B/P Pulse Ox O2 Delivery O2 Flow Rate FiO2 01/13/17 10:18 18 Room Air 01/13/17 09:18 2.0 01/13/17 09:11 84 110/76 01/13/17 07:00 97.5 95 97.5 Physical Exam Right hip dressing dry and intact. She is able to lift right leg up off of bed, without much pain. Calf soft and nontender, with a negative Cynthia's sign. Good dorsiflexion and plantarflexion with no sign of neurovascular injury. [facility] Labs Laboratory Tests Test 01/12/17 04:30 01/12/17 14:00 25-Hydroxy Vitamin D Total 32.8ng/mL (30.0-100.0) Hemoglobin 9.9g/dL (12.0-15.5) Hematocrit 30.5% (36.0-47.0) Mean Corpuscular Hemoglobin Concent 32g/dL (31-37) Sodium Level 138mmol/L (136-145) Potassium Level 3.4mmol/L (3.5-5.1) Chloride Level 101mmol/L (98-107) Carbon Dioxide Level 27mmol/L (21-32) Anion Gap 10 (6-14) Blood Urea Nitrogen 6mg/dL (7-20) Creatinine 0.9mg/dL (0.6-1.0) Estimated GFR (Cockcroft-Gault) 68.3 Glucose Level 127mg/dL (70-99) Calcium Level 8.8mg/dL (8.5-10.1) Laboratory Tests Test 01/12/17 14:00 Hemoglobin 9.9g/dL (12.0-15.5) Hematocrit 30.5% (36.0-47.0) Mean Corpuscular Hemoglobin Concent 32g/dL (31-37) Sodium Level 138mmol/L (136-145) Potassium Level 3.4mmol/L (3.5-5.1) Chloride Level 101mmol/L (98-107) Carbon Dioxide Level 27mmol/L (21-32) Anion Gap 10 (6-14) Blood Urea Nitrogen 6mg/dL (7-20) Creatinine 0.9mg/dL (0.6-1.0) Estimated GFR (Cockcroft-Gault) 68.3 Glucose Level 127mg/dL (70-99) Calcium Level 8.8mg/dL (8.5-10.1) Assessment Assessment POD #2 right hip IM nail Problems: Plan Plan of Care From our standpoint, patient may be discharged back to assisted house this afternoon. A note was written for extra bed mats and pillows and is in her chart. Continue aspirin 325mg twice daily for DVT ppx. WBAT with walker. Citracal handout in chart: two tabs, twice daily. Followup with [facility] in 10- [address] Hayden saw and examined the patient as well. SABINE MAN Jan 13, 2017 13:11
[2017-01-13 15:00] VITALS: BP 89/54
[2017-01-13 19:15] VITALS: BP 107/62
[2017-01-13] MEDS ORDERED: AMITRIPTYLINE HCL 50 MG TABLET ONE (20:38)
[2017-01-13] MEDS: ATORVASTATIN CALCIUM 10 MG TABLET. PO SCH (21:03)
[2017-01-13] MEDS: DOCUSATE SODIUM 100 MG CAPSULE. PO SCH (21:04)
[2017-01-13] MEDS: AMITRIPTYLINE HCL 50 MG TABLET PO SCH (21:04)
[2017-01-13] MEDS: MAGNESIUM CHLORIDE ER 64 MG TABLET.ER PO SCH ×2 (22:00)
[2017-01-13 22:54] VITALS: BP 113/53
[2017-01-14 03:19] VITALS: BP 134/78
[2017-01-14 04:58] LABS: BASO # 0.1 x10^3/uL (0.0-0.2); BASO % 1 % (0-3); EOS % 4 % (0-3); HEMATOCRIT 26.4 % (36.0-47.0); HEMOGLOBIN 8.7 g/dL (12.0-15.5); LYMPH # 2.4 x10^3/uL (1.0-4.8); LYMPH % 35 % (24-48); MEAN CORPUSCULAR HEMOGLOBIN 30 pg (25-35); MEAN CORPUSCULAR HGB CONC 33 g/dL (31-37); MEAN CORPUSCULAR VOLUME 92 fL (79-100); MONO % 11 % (0-9); NEUT % 49 % (31-73); PLATELET COUNT 177 x10^3/uL (140-400); RED BLOOD COUNT 2.87 x10^6/uL (3.50-5.40); RED CELL DISTRIBUTION WIDTH 14.6 % (11.5-14.5); WHITE BLOOD COUNT 6.8 x10^3/uL (4.0-11.0)
[2017-01-14 05:09] LABS: CALCIUM 8.5 mg/dL (8.5-10.1); CREATININE 0.7 mg/dL (0.6-1.0); GFR 91.3; POTASSIUM 4.1 mmol/L (3.5-5.1)
[2017-01-14] MEDS: POTASSIUM CHLORIDE 30 MEQ in IV 1/2 NORMAL SALINE 1,000 ML IV SCH ×2 (05:12→10:14)
[2017-01-14] MEDS: LEVOTHYROXINE 150 MCG TABLET PO SCH (06:06)
[2017-01-14] MEDS: OXYCODONE IR 5 MG TABLET. PO PRN ×2 (06:07→10:12)
[2017-01-14 07:00] VITALS: BP 127/58
[2017-01-14] MEDS ORDERED: ESTRADIOL 1 MG TABLET. ONE (09:26)
[2017-01-14] MEDS: VENLAFAXINE 75 MG TABLET. PO SCH ×2 (10:14→12:58)
[2017-01-14] MEDS: PANTOPRAZOLE 40 MG TABLET. PO SCH (10:14)
[2017-01-14] MEDS: ESTRADIOL 1 MG TABLET PO SCH (10:14)
[2017-01-14] MEDS: MULTIVITAMIN with MINERAL TABLET. PO SCH (10:14)
[2017-01-14] MEDS: ASPIRIN 325 MG TABLET PO SCH (10:14)
[2017-01-14] MEDS: CHOLECALCIFEROL (VITAMIN D3) 1,000 UNIT TABLET PO SCH (10:15)
[2017-01-14] MEDS: CARBAMAZEPINE 100 MG PO SCH (10:15)
[2017-01-14] MEDS: POTASSIUM CHLORIDE 20 MEQ TABLET.ER. PO SCH (10:15)
[2017-01-14] MEDS: DOCUSATE SODIUM 100 MG CAPSULE. PO SCH (10:15)
[2017-01-14] MEDS: SENNOSIDES/DOCUSATE 8.6/50MG TABLET. PO SCH (10:15)
[2017-01-14] MEDS: HYDROCHLOROTHIAZIDE 12.5 MG CAPSULE. PO SCH (10:15)
[2017-01-14] MEDS: LOSARTAN POTASSIUM 50 MG TABLET. PO SCH (10:16)
[2017-01-14 11:00] VITALS: BP 117/61
--- NOTE | 2017-01-14 11:42 | PDOC ---
PROGRESS NOTES Chief Complaint Chief Complaint Right femoral neck fracture, closed, traumatic after a mechanical fall s/p surgery, POD # 3 (01/11/17) - Critical Hypokalemia, replaced - Hypothyroidism, HTN, Anxiety NOS - chronic stable History of Present Illness History of Present Illness No acute events overnight. Patient has been ambulating with PT. RN reports pt was able to walk 80 feet this AM. She is still reporting pain to her right hip, but appropriately managed. Case discussed with case management who are working on home health vs detention arrangements. Vitals Vitals Vital Signs Date Time Temp Pulse Resp B/P Pulse Ox O2 Delivery O2 Flow Rate FiO2 01/14/17 11:18 Nasal Cannula 2.0 01/14/17 10:16 94 127/58 01/14/17 07:00 98.5 20 84 98.5 Physical Exam General: Alert, Oriented X3, Cooperative, No acute distress Heart: Regular rate, Normal S1, Normal S2 Lungs: Clear, Other (no wheezing) Abdomen: Soft, No tenderness Extremities: No edema, Normal pulses, Other (tenderness to right hip) Skin: No rashes, No breakdown Labs LABS Laboratory Tests Test 01/14/17 04:00 White Blood Count 6.8x10^3/uL (4.0-11.0) Red Blood Count 2.87x10^6/uL (3.50-5.40) Hemoglobin 8.7g/dL (12.0-15.5) Hematocrit 26.4% (36.0-47.0) Mean Corpuscular Volume 92fL (79-100) Mean Corpuscular Hemoglobin 30pg (25-35) Mean Corpuscular Hemoglobin Concent 33g/dL (31-37) Red Cell Distribution Width 14.6% (11.5-14.5) Platelet Count 177x10^3/uL (140-400) Neutrophils (%) (Auto) 49% (31-73) Lymphocytes (%) (Auto) 35% (24-48) Monocytes (%) (Auto) 11% (0-9) Eosinophils (%) (Auto) 4% (0-3) Basophils (%) (Auto) 1% (0-3) Neutrophils # (Auto) 3.4x10^3uL (1.8-7.7) Lymphocytes # (Auto) 2.4x10^3/uL (1.0-4.8) Monocytes # (Auto) 0.8x10^3/uL (0.0-1.1) Eosinophils # (Auto) 0.3x10^3/uL (0.0-0.7) Basophils # (Auto) 0.1x10^3/uL (0.0-0.2) Sodium Level 137mmol/L (136-145) Potassium Level 4.1mmol/L (3.5-5.1) Chloride Level 103mmol/L (98-107) Carbon Dioxide Level 28mmol/L (21-32) Anion Gap 6 (6-14) Blood Urea Nitrogen 8mg/dL (7-20) Creatinine 0.7mg/dL (0.6-1.0) Estimated GFR (Cockcroft-Gault) 91.3 Glucose Level 85mg/dL (70-99) Calcium Level 8.5mg/dL (8.5-10.1) Review of Systems Review of Systems Denies fever and chills. Denies chest pain and shortness of breath. Right hip pain, appropriately controlled. Assessment and Plan Assessmemt and Plan Problems Medical Problems: (1) Hip fracture Status: Acute ASSESSMENT: 1. R fem neck fx, closed, traumatic after a mechanical fall s/p sx POD # 3 (01/11) 2. Critical Hypokalemia, replaced 3. Hypothyroidism, HTN, Anxiety NOS - chronic stable PLAN: - probable discharge today; case management working on placement; home health vs detention - Orthopedic surgery to follow up with pt outpatient. - PT has provided outpatient therapy recommendations - case discussed with insurance auditor, regarding placement - cont pain control - cont to encourage ambulation Problems: Comment Review of Relevant I have reviewed the following items glenda (where applicable) has been applied. Labs Laboratory Tests Test 01/12/17 14:00 01/14/17 04:00 Hemoglobin 9.9g/dL (12.0-15.5) 8.7g/dL (12.0-15.5) Hematocrit 30.5% (36.0-47.0) 26.4% (36.0-47.0) Mean Corpuscular Hemoglobin Concent 32g/dL (31-37) 33g/dL (31-37) Sodium Level 138mmol/L (136-145) 137mmol/L (136-145) Potassium Level 3.4mmol/L (3.5-5.1) 4.1mmol/L (3.5-5.1) Chloride Level 101mmol/L (98-107) 103mmol/L (98-107) Carbon Dioxide Level 27mmol/L (21-32) 28mmol/L (21-32) Anion Gap 10 (6-14) 6 (6-14) Blood Urea Nitrogen 6mg/dL (7-20) 8mg/dL (7-20) Creatinine 0.9mg/dL (0.6-1.0) 0.7mg/dL (0.6-1.0) Estimated GFR (Cockcroft-Gault) 68.3 91.3 Glucose Level 127mg/dL (70-99) 85mg/dL (70-99) Calcium Level 8.8mg/dL (8.5-10.1) 8.5mg/dL (8.5-10.1) White Blood Count 6.8x10^3/uL (4.0-11.0) Red Blood Count 2.87x10^6/uL (3.50-5.40) Mean Corpuscular Volume 92fL (79-100) Mean Corpuscular Hemoglobin 30pg (25-35) Red Cell Distribution Width 14.6% (11.5-14.5) Platelet Count 177x10^3/uL (140-400) Neutrophils (%) (Auto) 49% (31-73) Lymphocytes (%) (Auto) 35% (24-48) Monocytes (%) (Auto) 11% (0-9) Eosinophils (%) (Auto) 4% (0-3) Basophils (%) (Auto) 1% (0-3) Neutrophils # (Auto) 3.4x10^3uL (1.8-7.7) Lymphocytes # (Auto) 2.4x10^3/uL (1.0-4.8) Monocytes # (Auto) 0.8x10^3/uL (0.0-1.1) Eosinophils # (Auto) 0.3x10^3/uL (0.0-0.7) Basophils # (Auto) 0.1x10^3/uL (0.0-0.2) Laboratory Tests Test 01/14/17 04:00 White Blood Count 6.8x10^3/uL (4.0-11.0) Red Blood Count 2.87x10^6/uL (3.50-5.40) Hemoglobin 8.7g/dL (12.0-15.5) Hematocrit 26.4% (36.0-47.0) Mean Corpuscular Volume 92fL (79-100) Mean Corpuscular Hemoglobin 30pg (25-35) Mean Corpuscular Hemoglobin Concent 33g/dL (31-37) Red Cell Distribution Width 14.6% (11.5-14.5) Platelet Count 177x10^3/uL (140-400) Neutrophils (%) (Auto) 49% (31-73) Lymphocytes (%) (Auto) 35% (24-48) Monocytes (%) (Auto) 11% (0-9) Eosinophils (%) (Auto) 4% (0-3) Basophils (%) (Auto) 1% (0-3) Neutrophils # (Auto) 3.4x10^3uL (1.8-7.7) Lymphocytes # (Auto) 2.4x10^3/uL (1.0-4.8) Monocytes # (Auto) 0.8x10^3/uL (0.0-1.1) Eosinophils # (Auto) 0.3x10^3/uL (0.0-0.7) Basophils # (Auto) 0.1x10^3/uL (0.0-0.2) Sodium Level 137mmol/L (136-145) Potassium Level 4.1mmol/L (3.5-5.1) Chloride Level 103mmol/L (98-107) Carbon Dioxide Level 28mmol/L (21-32) Anion Gap 6 (6-14) Blood Urea Nitrogen 8mg/dL (7-20) Creatinine 0.7mg/dL (0.6-1.0) Estimated GFR (Cockcroft-Gault) 91.3 Glucose Level 85mg/dL (70-99) Calcium Level 8.5mg/dL (8.5-10.1) Medications Current Medications Losartan Potassium (Cozaar) 25 mg DAILY PO Last administered on 01/12/17t 09:56 ; Start 01/11/17 at 09:00; Stop 01/12/17 at 12:16; Status DC Venlafaxine HCl 37.5 mg 37.5 mg DAILY PO Last administered on 01/12/17 09:55; Start 01/11/17 at 09:00; Stop 01/12/17 at 11:56; Status DC Sodium Chloride (Iv Sodium Chloride 0.45%) 1,000 ml @ 100 mls/hr Q10H IV ; Start 01/10/17 at 19:16; Stop 01/10/17 at 19:23; Status DC Ondansetron HCl (Zofran) 4 mg PRN Q6HRS PRN IV NAUSEA/VOMITING; Start 01/10/17 at 19:30; Stop 01/12/17 at 14:26; Status DC Prochlorperazine Edisylate (Compazine) 10 mg PRN Q6HRS PRN IV NAUSEA/VOMITING; Start 01/10/17 at 19:30 Prochlorperazine (Compazine) 25 mg PRN Q12HR PRN [place] NAUSEA/VOMITING; Start at 19:30 Al Hydroxide/Mg Hydroxide (Mylanta Plus Xs) 30 ml PRN Q3HRS PRN PO HEARTBURN / GAS Last administered on 01/12/17 20:00; Start 01/10/17 at 19:30 Calcium Carbonate/ Glycine (Tums) 500 mg PRN Q3HRS PRN PO UPSET STOMACH; Start 01/10/17 at 19:30 Zolpidem Tartrate (Ambien) 5 mg PRN QHS PRN PO INSOMNIA, MAY REPEAT IN 1HR Last administered on 01/10/17 21:06; Start 01/10/17 at 19:30 Oxycodone HCl (Roxicodone) 5 mg PRN Q3HRS PRN PO BREAKTHROUGH PAIN Last administered on 01/11/17 15:43; Start 01/10/17 at 19:30; Stop 01/12/17 at 14:25 ; Status DC Morphine Sulfate 2 mg PRN Q2HR PRN IV PAIN; Start 01/10/17 at 19:30; Stop 01/10 at 19:45; Status DC Oxycodone/ Acetaminophen (Percocet 5/325) 1 tab PRN Q4HRS PRN PO MILD PAIN, 1ST CHOICE Last administered on 01/11/17 00:50; Start 01/10/17 at 19:30 Ketorolac Tromethamine (Toradol) 30 mg PRN Q6HRS PRN IV PAIN Last administered on 01/10/17 20:37; Start 01/10/17 at 19:30; Stop 01/15/17 at 19:29 Acetaminophen (Tylenol) 650 mg PRN Q6HRS PRN PO MILD PAIN / TEMP; Start at 19:30 Ibuprofen (Motrin) 400 mg PRN Q6HRS PRN PO MILD PAIN; Start 01/10/17 at 19:30 Senna/Docusate Sodium (Senna Plus) 1 tab BID PO Last administered on 01/14/17 10:15; Start 01/10/17 at 21:00 Docusate Sodium (Colace) 100 mg BID PO Last administered on 01/13/17 09:12; Start 01/10/17 at 21:00; Stop 01/13/17 at 14:08; Status DC Magnesium Hydroxide (Milk Of Magnesia) 2,400 mg PRN Q12HR PRN PO CONSTIPATION; Start 01/10/17 at 19:30 Lactulose 20 gm PRN Q12HR PRN PO CONSTIPATION; Start 01/10/17 at 19:30 Bisacodyl 10 mg 10 mg PRN DAILY PRN FL CONSTIPATION; Start 01/10/17 at 19:30 Potassium Chloride 100 ml @ 100 mls/hr Q1H IV Last administered on 01/11/17 05:19; Start 01/10/17 at 20:00; Stop 01/11/17 at 01:59; Status DC Potassium Chloride/Sodium Chloride (Iv Sodium Chloride 0.45%) 1,015 ml @ 100 mls/hr Q10H9M IV Last administered on 01/14/17 10:14; Start 01/10/17 at 20:00 Hydromorphone HCl (Dilaudid) 2 mg PRN Q4HRS PRN IV PAIN Last administered on 18:04; Start 01/10/17 at 19:45 Nicotine (Nicoderm Cq 21mg) 1 patch PRN DAILY PRN TD SMOKING CESSATION Last administered on 01/10/17 21:06; Start 01/10/17 at 20:15 Ondansetron HCl (Zofran) 4 mg PRN Q6HRS PRN IV Nausea; Start 01/11/17 at 08:15 ; Stop 01/12/17 at 08:14; Status DC Fentanyl Citrate (Fentanyl 2ml Vial) 25 mcg PRN Q5MIN PRN IV MILD PAIN; Start 01/11/17 at 08:15; Stop 01/12/17 at 08:14; Status DC Fentanyl Citrate (Fentanyl 2ml Vial) 50 mcg PRN Q5MIN PRN IV MODERATE PAIN Last administered on 01/11/17 14:21; Start 01/11/17 at 08:15; Stop 01/12/17 at 08:14; Status DC Morphine Sulfate 1 mg 1 mg PRN Q10MIN PRN IV SEVERE PAIN Last administered on 14:16; Start 01/11/17 at 08:15; Stop 01/12/17 at 08:14; Status DC Lactated Ringer's (Iv Lactated Ringers) 1,000 ml @ 0 mls/hr Q0M IV ; Start at 08:14; Stop 01/11/17 at 20:13; Status DC Lidocaine HCl 2 ml 1X PRN PRN ID IV START; Start 01/11/17 at 08:15; Stop at 08:14; Status DC Hydromorphone HCl (Dilaudid) 0.5 mg PRN Q10MIN PRN IV SEV PAIN,Second choice Last administered on 01/11/17 14:48; Start 01/11/17 at 08:15; Stop 01/12/17 at 08:14; Status DC Prochlorperazine Edisylate (Compazine) 5 mg PACU PRN PRN IV NAUSEA; Start 01/11 at 08:15; Stop 01/12/17 at 08:14; Status DC Pneumococcal Polyvalent Vaccine (Do NOT chart on this placeholder) 1 each 1X ONCE MC ; Start 01/11/17 at 08:45; Stop 01/11/17 at 08:46; Status DC Bupivacaine HCl/ Epinephrine Bitart 30 ml 30 ml STK-MED ONCE .ROUTE Last administered on 01/11/17 12:32; Start 01/11/17 at 09:35; Stop 01/11/17 at 09:36 ; Status DC Propofol (Diprivan) 20 ml @ As Directed STK-MED ONCE IV ; Start 01/11/17 at 10: 39; Stop 01/11/17 at 10:40; Status DC Lidocaine HCl 100 mg STK-MED ONCE .ROUTE ; Start 01/11/17 at 10:39; Stop at 10:40; Status DC Fentanyl Citrate (Fentanyl 2ml Vial) 100 mcg STK-MED ONCE .ROUTE ; Start at 10:40; Stop 01/11/17 at 10:41; Status DC Rocuronium Cinebar (Zemuron) 50 mg STK-MED ONCE .ROUTE ; Start 01/11/17 at 10:40 ; Stop 01/11/17 at 10:41; Status DC Famotidine (Pepcid) 20 mg STK-MED ONCE .ROUTE ; Start 01/11/17 at 10:40; Stop at 10:41; Status DC Ondansetron HCl (Zofran) 4 mg STK-MED ONCE .ROUTE ; Start 01/11/17 at 10:40; Stop 01/11/17 at 10:41; Status DC Phenylephrine HCl 1 mg STK-MED ONCE IV ; Start 01/11/17 at 10:40; Stop 01/11/17 at 10:41; Status DC Pneumococcal Polyvalent Vaccine 0.5 ml 0.5 ml ONCE ONCE VAX IM Last administered on 01/12/17t 10:29; Start 01/12/17 at 09:00; Stop 01/12/17 at 09:01 ; Status DC Cefazolin Sodium/ Dextrose (Ancef 2gm Premix) 50 ml @ As Directed STK-MED ONCE IV ; Start 01/11/17 at 11:21; Stop 01/11/17 at 11:22; Status DC Dexamethasone Sodium Phosphate (Decadron) 20 mg STK-MED ONCE .ROUTE ; Start at 12:35; Stop 01/11/17 at 12:36; Status DC Fentanyl Citrate (Fentanyl 2ml Vial) 100 mcg STK-MED ONCE .ROUTE ; Start at 13:25; Stop 01/11/17 at 13:26; Status DC Glycopyrrolate (Robinul) 1 mg STK-MED ONCE .ROUTE ; Start 01/11/17 at 13:39; Stop 01/11/17 at 13:40; Status DC Neostigmine Methylsulfate 5 mg STK-MED ONCE .ROUTE ; Start 01/11/17 at 13:39; Stop 01/11/17 at 13:40; Status DC Sevoflurane (Ultane) 60 ml STK-MED ONCE IH ; Start 01/11/17 at 13:42; Stop 01/11 at 13:43; Status DC Oxycodone HCl (Roxicodone) 5 mg PRN Q3HRS PRN PO PAIN Last administered on 01/14 10:12; Start 01/11/17 at 14:00 Morphine Sulfate 2 mg PRN Q1HR PRN IV PAIN Last administered on 01/11/17 15:07 ; Start 01/11/17 at 14:00 Fentanyl Citrate (Fentanyl 2ml Vial) 25 mcg PRN Q1HR PRN IV PAIN; Start at 14:00 Multivitamins (Thera M Plus) 1 tab DAILY PO Last administered on 01/14/17 10: 14; Start 01/12/17 at 09:00 Senna/Docusate Sodium (Senna Plus) 1 tab DAILY PO ; Start 01/12/17 at 09:00; Stop 01/12/17 at 11:05; Status DC Polyethylene Glycol (miraLAX PACKET) 17 gm PRN DAILY PRN PO CONSTIPATION; Start 01/11/17 at 14:00 Vitamin D (Vitamin D3) 1,000 unit DAILY PO Last administered on 01/14/17 10:15 ; Start 01/12/17 at 09:00 Ondansetron HCl (Zofran) 4 mg PRN Q4HRS PRN IV NAUSEA/VOMITING Last administered on 01/13/17 10:19; Start 01/11/17 at 14:00 Aspirin (Rodrigo Aspirin) 325 mg BID PO Last administered on 01/14/17 10:14; Start 01/11/17 at 21:00 Magnesium Hydroxide (Milk Of Magnesia) 2,400 mg 1X PRN PRN PO CONSTIPATION; Start 01/12/17 at 06:00; Stop 01/13/17 at 05:59; Status DC Bisacodyl (Dulcolax Supp) 10 mg 1X PRN PRN [place] CONSTIPATION; Start 01/12/17 at 16:00; Stop 01/13/17 at 15:59; Status DC Acetaminophen/ Hydrocodone Bitart (Lortab 7.5/325) 1 tab PRN Q4HRS PRN PO PAIN Last administered on 01/12/17 23:21; Start 01/11/17 at 14:00 Morphine Sulfate 4 mg PRN Q2HR PRN IV PAIN; Start 01/11/17 at 14:00 Acetaminophen/ Hydrocodone Bitart (Lortab 7.5/325) 2 tab PRN Q4HRS PRN PO PAIN Last administered on 01/13/17 06:50; Start 01/11/17 at 14:00 Dextrose 12.5 gm 12.5 gm PRN Q15MIN PRN IV SEE COMMENTS; Start 01/11/17 at 14: 00 Cefazolin Sodium/ Dextrose (Ancef 2gm Premix) 50 ml @ 100 mls/hr Q6H IV Last administered on 01/12/17 06:10; Start 01/11/17 at 18:00; Stop 01/12/17 at 06:29 ; Status DC Aspirin (Children'S Aspirin) 81 mg DAILY PO ; Start 01/13/17 at 09:00; Stop at 09:00; Status DC Atorvastatin Calcium (Lipitor) 10 mg QHS PO Last administered on 01/13/17 21: 03; Start 01/12/17 at 21:00 Carbamazepine (Tegretol Xr) 100 mg DAILY PO Last administered on 01/14/17 10: 15; Start 01/12/17 at 12:00 Levothyroxine Sodium (Synthroid) 150 mcg DAILY07 PO Last administered on 06:06; Start 01/13/17 at 07:00 Amitriptyline HCl (Elavil) 150 mg QHS PO Last administered on 01/13/17 21:04; Start 01/12/17 at 21:00 Carbamazepine (Tegretol Xr) 200 mg QHS PO Last administered on 01/13/17 21:04 ; Start 01/12/17 at 21:00 Estradiol (Estrace) 2 mg DAILY PO Last administered on 01/14/17 10:14; Start 01/12/17 at 12:00 Losartan Potassium (Cozaar) 100 mg DAILY PO Last administered on 01/14/17 10: 16; Start 01/12/17 at 12:00 Pantoprazole Sodium (Protonix) 40 mg DAILYAC PO Last administered on 01/14/17 10:14; Start 01/12/17 at 12:00 Potassium Chloride (Klor-Con) 10 meq BIDWMEALS PO ; Start 01/12/17 at 17:00; Status Cancel Venlafaxine HCl (Effexor) 75 mg TID PO Last administered on 01/14/17 10:14; Start 01/12/17 at 14:00 Hydrochlorothiazide (Microzide) 12.5 mg DAILY PO Last administered on 10:15; Start 01/12/17 at 12:00 Potassium Chloride (Klor-Con) 20 meq BIDWMEALS PO Last administered on 10:15; Start 01/12/17 at 17:00 Magnesium Chloride (Mag Delay) 64 mg QHS PO Last administered on 01/13/17 22: 00; Start 01/12/17 at 21:00 Cyclobenzaprine HCl (Flexeril) 10 mg PRN Q6HRS PRN PO MUSCLE SPASMS Last administered on 01/12/17 20:00; Start 01/12/17 at 12:45 Cefazolin Sodium/ Dextrose (Ancef 2gm Premix) 2 gm STK-MED ONCE IV ; Start 01/11 at 11:21; Stop 01/13/17 at 08:09; Status DC Docusate Sodium (Colace) 100 mg BID PO Last administered on 01/14/17 10:15; Start 01/13/17 at 21:00 Amitriptyline HCl (Amitriptyline HCl) 50 mg STK-MED ONCE .ROUTE ; Start at 20:38; Stop 01/13/17 at 20:39; Status DC Estradiol (Estrace) 1 mg STK-MED ONCE .ROUTE ; Start 01/14/17 at 09:26; Stop at 09:27; Status DC Active Scripts Active Reported Carbamazepine Er (Carbamazepine) 200 Mg Tab.er.12h 200 Mg PO HS Carbamazepine ER (Carbamazepine) 100 Mg Tab.er.12h 100 Mg PO DAILY Omeprazole 20 Mg Tablet.dr 1 Tab PO BID Venlafaxine Hcl Er (Venlafaxine Hcl) 225 Mg Tab.er.24 225 Mg PO DAILY Levothyroxine Sodium 150 Mcg Tablet 1 Tab PO DAILY Amitriptyline Hcl 150 Mg Tablet 1 Tab PO QHS Aspirin 81 Mg Tab.chew 1 Tab PO DAILY Lipitor (Atorvastatin Calcium) 10 Mg Tablet 1 Tab PO QHS Estradiol 2 Mg Tablet 1 Tab PO DAILY Losartan-Hctz 100-12.5 Mg Tab (Losartan/Hydrochlorothiazide) 1 Each Tablet 1 Tab PO DAILY Potassium Chloride 10 Meq Tablet.er 10 Meq PO BID Vitals/I & O Vital Sign - Last 24 Hours 01/13/17 01/13/17 01/13/17 01/13/17 13:50 15:00 17:48 19:15 Temp 97.5 98.1 97.5 98.1 Pulse 85 89 Resp 14 18 B/P 89/54 107/62 Pulse Ox 89 93 O2 Delivery Room Air Nasal Cannula Room Air Nasal Cannula O2 Flow Rate 3.0 2.0 01/13/17 01/13/17 01/14/17 01/14/17 20:00 22:54 03:19 03:19 Temp 98.4 98.7 98.4 98.7 Pulse 74 82 Resp 18 18 B/P 113/53 134/78 Pulse Ox 96 92 O2 Delivery Nasal Cannula Nasal Cannula Room Air O2 Flow Rate 2.0 2.0 2.0 01/14/17 01/14/17 01/14/17 01/14/17 07:00 08:31 10:12 10:16 Temp 98.5 98.5 Pulse 94 94 Resp 20 B/P 127/58 127/58 Pulse Ox 84 O2 Delivery Room Air Room Air Nasal Cannula O2 Flow Rate 2.0 01/14/17 11:18 O2 Delivery Nasal Cannula O2 Flow Rate 2.0 Intake and Output 01/13/17 01/13/17 01/14/17 15:00 23:00 07:00 Intake Total 300 ml 500 ml Output Total 300 ml Balance -300 ml 300 ml 500 ml SHELBY GANNON III DO Jan 14, 2017 11:42
[2017-01-14] MEDS: HYDROCODONE/APAP 7.5/325MG TABLET. PO PRN (12:54)
[2017-01-14] MEDS ORDERED: AMITRIPTYLINE HCL 50 MG TABLET PO SCH (21:00)
[2017-01-15] MEDS ORDERED: ESTRADIOL 1 MG TABLET. PO SCH (09:00)
== END 2017-01-14 13:22 | disposition home or self-care (01) | DRG 481 ==
LOC: 4 NORTH 17:39
PROVIDERS: ADMIT Internal Medicine; ATTEND Internal Medicine
PROC: 0QS606Z Reposition Right Upper Femur with Intramedullary Internal Fixation Device, Open Approach (ICD-10-PCS; principal; 2017-01-11 11:00)
DX: M84.451A Pathological fracture, right femur, initial encounter for fracture (principal); Z68.41 Body mass index [BMI] 40.0-44.9, adult; E03.9 Hypothyroidism, unspecified; E66.01 Morbid (severe) obesity due to excess calories; E87.6 Hypokalemia; F17.200 Nicotine dependence, unspecified, uncomplicated; F41.9 Anxiety disorder, unspecified; I10 Essential (primary) hypertension; F32.9 Major depressive disorder, single episode, unspecified; W01.0XXA Fall on same level from slipping, tripping and stumbling without subsequent striking against object, initial encounter; J45.909 Unspecified asthma, uncomplicated; Z79.890 Hormone replacement therapy; Z82.49 Family history of ischemic heart disease and other diseases of the circulatory system; Z83.3 Family history of diabetes mellitus; Z90.710 Acquired absence of both cervix and uterus
CPT/HCPCS: 36415; 76000; 80048; 80053; 82306; 82947; 83735; 84100; 85014; 85018; 85027; 85610; 87641; 90732; A4215; C1713; C1887; J0690; J1100; J1170; J1885; J2270; J2370; J2405; J2704; J2710; J3010; J3480; J3490; S0028; 97110; 97116; 97530; 97535

== ENCOUNTER → 2017-03-05 | Outpatient (CLI) | payer OTHER ==
[~2017-03-05] MED LIST changes: +AMIT150T PO; +ASPI-630 PO; +ATOR10TA PO; +CARB100C PO; +CARB200T PO; +CARB200T13 PO; +ESTR2TAB PO; +LEVO150T5 PO; +LOSA1TAB18 PO; +OMEP20TA8 PO; +OMEP40CA5 PO; +POTA10TA12 PO; +TRAZ150T49 PO; +VENL225T PO; +[UNRECOGNIZED DRUG - CODE] PO
--- NOTE | 2017-03-05 13:54 | KCIC ---
PROCEDURE DEXA scan 03/05/2017 HISTORY Recent femur fracture. TECHNIQUE DEXA of the lumbar spine and left hip was performed. COMPARISON None. FINDINGS The mean bone mineral density of the lumbar spine is 1.023 grams/centimeters squared. This corresponds to a T-score of-0.2. This is within normal limits. The mean bone mineral density of the left hip is 1.000 grams/centimeter squared. This corresponds to a T-score 0.5. This is within normal limits. IMPRESSION The patient's mean bone mineral densities are within normal limits. According to the world health organization (WHO): Normal: T score at or above -1 Osteopenia: T score between -1 and -2.5 Osteoporosis: T score at or below -2.5 Electronically signed by: Maninder Reyes MD (March 05, 2017 13:52:42)
== END | disposition home or self-care (01) ==
LOC: KCIC DEXA 09:17
PROVIDERS: ATTEND Orthopaedic Surgery
DX: S72.141D Displaced intertrochanteric fracture of right femur, subsequent encounter for closed fracture with routine healing (principal); Z78.0 Asymptomatic menopausal state; X58.XXXD Exposure to other specified factors, subsequent encounter
CPT/HCPCS: 77080